=== PATIENT | female | born 1935 | race Two or more races ===

== ENCOUNTER 2017-04-25 20:21 | Inpatient (IN) | payer MEDICAID, MEDICARE ==
[~2017-04-25] VITALS: Ht 149.9 cm; Wt 63.0 kg
[~2017-04-25 20:21] MED LIST: ASPIR 8181 MG ORAL; ATENOLOL25 MG ORAL; GABAPENTIN100 MG ORAL; LEXAPRO10 MG ORAL; LOSARTAN POTASS25 MG ORAL; TRAMADOL HCL50 MG ORAL
[2017-04-25 20:30] VITALS: BP 145/68
[2017-04-25 21:00] LABS: ANION GAP 8 mmol/L (5-15); BASOPHILS % (AUTO) 0.9 % (0.0-2.0); CALCIUM 8.9 MG/DL (8.5-10.1); CARBON DIOXIDE 29 MMOL/L (21-32); CHLORIDE 100 MMOL/L (98-107); CREATININE 0.8 MG/DL (0.55-1.30); EOSINOPHILS % (AUTO) 0.1 % (0.0-3.0); LYMPHOCYTES % (AUTO) 18.1 % (20.0-45.0); MEAN CORPUSCULAR HEMOGLOBIN 25.9 PG (27.0-31.0); MEAN CORPUSCULAR HGB CONC 30.8 G/DL (32.0-36.0); MEAN CORPUSCULAR VOLUME 84 FL (80-99); MEAN PLATELET VOLUME 7.4 FL (6.5-10.1); MONOCYTES % (AUTO) 4.3 % (1.0-10.0); NEUTROPHILS % (AUTO) 76.7 % (45.0-75.0); PLATELET COUNT 171 K/UL (150-450); POTASSIUM 3.7 MMOL/L (3.5-5.1); RED CELL DISTRIBUTION WIDTH 14.1 % (11.6-14.8); SODIUM 137 MMOL/L (136-145); WHITE BLOOD COUNT 6.3 K/UL (4.8-10.8)
[2017-04-25 21:03] LABS: INR 1.1 (0.9-1.1); PROTHROMBIN TIME 11.6 SEC (9.30-11.50)
[2017-04-25 21:18] LABS: ALANINE AMINOTRANSFERASE 20 U/L (12-78); ALBUMIN/GLOBULIN RATIO 0.8 (1.0-2.7); ASPARTATE AMINO TRANSFERASE 18 U/L (15-37); CKMB 1.5 NG/ML (0.0-3.6); TOTAL PROTEIN 7.5 G/DL (6.4-8.2)
[2017-04-25 21:30] VITALS: BP 138/72
[2017-04-25 21:37] LABS: APPEARANCE,URINE CLEAR; KETONES,URINE 1+ (NEGATIVE); LEUKOCYTE ESTERASE ,URINE 1+ (NEGATIVE); NITRITE,URINE NEGATIVE (NEGATIVE); PH,URINE 8 (4.5-8.0); PROTEIN,URINE NEGATIVE (NEGATIVE); UROBILINOGEN,URINE NORMAL MG/DL (0.0-1.0)
[2017-04-25 21:52] LABS: BACTERIA,URINE FEW /HPF; SQUAMOUS EPITHELIAL CELL,UR FEW /LPF (NONE/OCC)
[2017-04-25 22:40] VITALS: BP 142/72
--- NOTE | 2017-04-25 23:11 | Emergency Room Report ---
History of Present Illness General Chief Complaint: Dyspnea/Respdistress Source: Patient, Family Member, PMD Present Illness HPI This patient is accompanied by her family. Over the past day she has declined rapidly. She is developed weakness and generalized fatigue. Her daughter states she seemed confused. Her reports that she has had some cough and shortness of breath. There is no trauma. There is no fever or chills. There is no nausea or vomiting. There is no chest pain. There is no abdominal pain. There are no other complaints. Allergies: Coded Allergies: No Known Allergies (Unverified , 04/25/17) Patient History Past Medical History: see triage record, HTN, other - Chronic foot pain Social History: Denies: smoking, alcohol use, drug use Reviewed Nursing Documentation: PMH: Agreed, PSxH: Agreed Nursing Documentation-PM Past Medical History: No History, Except For Hx Hypertension: Yes Review of Systems All Other Systems: negative except mentioned in HPI Physical Exam Vital Signs Date Time Temp Pulse Resp B/P (MAP) Pulse Ox O2 Delivery O2 Flow Rate FiO2 04/25/17 20:11 100.8 98 17 145/68 98 Simple Mask Sp02 EP Interpretation: reviewed, normal General Appearance: no apparent distress, alert, GCS 15, non-toxic Head: normocephalic, atraumatic Eyes: bilateral eye normal inspection, bilateral eye PERRL ENT: hearing grossly normal, normal pharynx, no angioedema, normal voice Neck: full range of motion, supple/symm/no masses Respiratory: chest non-tender, lungs clear, normal breath sounds, speaking full sentences Cardiovascular #1: regular rate, rhythm, no edema Gastrointestinal: normal bowel sounds, non tender, soft, non-distended, no guarding, no rebound Rectal: deferred Musculoskeletal: back normal, normal range of motion Neurologic: alert, responsive, sensory intact, speech normal, other - nonfocal. Not able to comply w/ full neuro exam. Psychiatric: mood/affect normal, no suicidal/homicidal ideation Skin: normal color, no rash, warm/dry, well hydrated Medical Decision Making Diagnostic Impression: Primary Impression: Pneumonia Additional Impressions: Anemia Fever ER Course This patient presents with a mild pneumonia. She is requiring to be does of nasal cannula. She is more somnolent than usual per her family. She was given broad-spectrum antibiotics and IV fluids. She is found to be in the neck. I am unsure of the acuity of this. The most recent hemoglobin and hematocrit is from 5 years ago. There is no history that would suggest a GI bleed. Regardless, the patient is oxygen requiring and febrile and found to be anemic. She is admitted for further evaluation and treatment. Laboratory Tests Test 04/25/17 20:20 04/25/17 21:15 White Blood Count 6.3 K/UL (4.8-10.8) Red Blood Count 4.00 M/UL (4.20-5.40) L Hemoglobin 10.4 G/DL (12.0-16.0) L Hematocrit 33.7 % (37.0-47.0) L Mean Corpuscular Volume 84 FL (80-99) Mean Corpuscular Hemoglobin 25.9 PG (27.0-31.0) L Mean Corpuscular Hemoglobin Concent 30.8 G/DL (32.0-36.0) L Red Cell Distribution Width 14.1 % (11.6-14.8) Platelet Count 171 K/UL (150-450) Mean Platelet Volume 7.4 FL (6.5-10.1) Neutrophils (%) (Auto) 76.7 % (45.0-75.0) H Lymphocytes (%) (Auto) 18.1 % (20.0-45.0) L Monocytes (%) (Auto) 4.3 % (1.0-10.0) Eosinophils (%) (Auto) 0.1 % (0.0-3.0) Basophils (%) (Auto) 0.9 % (0.0-2.0) Prothrombin Time 11.6 SEC (9.30-11.50) H Prothrombin Time INR 1.1 (0.9-1.1) PTT 29 SEC (23-33) Sodium Level 137 MMOL/L (136-145) Potassium Level 3.7 MMOL/L (3.5-5.1) Chloride Level 100 MMOL/L (98-107) Carbon Dioxide Level 29 MMOL/L (21-32) Anion Gap 8 mmol/L (5-15) Blood Urea Nitrogen 14 mg/dL (7-18) Creatinine 0.8 MG/DL (0.55-1.30) Estimate Glomerular Filtration Rate mL/min (>60) Glucose Level 116 MG/DL (74-106) H Calcium Level 8.9 MG/DL (8.5-10.1) Total Bilirubin 0.7 MG/DL (0.2-1.0) Aspartate Amino Transferase (AST) 18 U/L (15-37) Alanine Aminotransferase (ALT) 20 U/L (12-78) Alkaline Phosphatase 56 U/L (46-116) Total Creatine Kinase 156 U/L (26-308) Creatine Kinase MB 1.5 NG/ML (0.0-3.6) Creatine Kinase MB Relative Index 0.9 Troponin I 0.006 ng/mL (0.000-0.056) Pro-B-Type Natriuretic Peptide 1004 pg/mL (0-125) H Total Protein 7.5 G/DL (6.4-8.2) Albumin 3.4 G/DL (3.4-5.0) Globulin 4.1 g/dL Albumin/Globulin Ratio 0.8 (1.0-2.7) L Urine Color Pale yellow Urine Appearance Clear Urine pH 8 (4.5-8.0) Urine Specific [place] 1.010 (1.005-1.035) Urine Protein Negative (NEGATIVE) Urine Glucose (UA) Negative (NEGATIVE) Urine Ketones 1+ (NEGATIVE) H Urine Occult Blood 4+ (NEGATIVE) H Urine Nitrite Negative (NEGATIVE) Urine Bilirubin Negative (NEGATIVE) Urine Urobilinogen Normal MG/DL (0.0-1.0) Urine Leukocyte Esterase 1+ (NEGATIVE) H Urine RBC 5-10 /HPF (0 - 2) H Urine WBC 2-4 /HPF (0 - 2) Urine Squamous Epithelial Cells Few /LPF (NONE/OCC) Urine Bacteria Few /HPF (NONE) EKG Diagnostic Results Rate: normal Rhythm: NSR ST Segments: no acute changes Other Impression L.BBB Rhythm Strip Diag. Results EP Interpretation: yes Rate: 90's Rhythm: NSR, no PVC's, no ectopy Chest X-Ray Diagnostic Results Chest X-Ray Diagnostic Results : Chest X-Ray Ordered: Yes # of Views/Limited/Complete: 1 View Indication: Other EP Interpretation: Yes Interpretation: no effusion, no pneumothorax, other Impression: Other - Opacity LLL Electronically Signed by: Donovan CT/MRI/US Diagnostic Results CT/MRI/US Diagnostic Results : Imaging Test Ordered: CT head: Impression Formal reading pending. No obvious bleed on my read. See official report. Last Vital Signs Date Time Temp Pulse Resp B/P (MAP) Pulse Ox O2 Delivery O2 Flow Rate FiO2 04/25/17 20:11 100.8 98 17 145/68 98 Simple Mask Disposition: ADMITTED INPATIENT Condition: Serious Referrals: CARI POSADA (PCP) BRITNEY RIOS D.O. Apr 25, 2017 23:11
[2017-04-25] MEDS ORDERED: Acetaminophen 500mg (ES) tab ORAL ONE (23:30)
[2017-04-25] MEDS ORDERED: cefTRIAXone 1 GM in NS 55 ML IVPB ONE (23:30)
[2017-04-25 23:40] VITALS: BP 146/72
[2017-04-25] MEDS ORDERED: traMADol 50mg tab ORAL PRN (23:45)
[2017-04-26] VITALS (8 sets, daily range): BP systolic 97–155; BP diastolic 45–74
[2017-04-26] MEDS ORDERED: traMADol 50mg tab ORAL PRN (01:30)
[2017-04-26] MEDS: traMADol 50mg tab ORAL PRN ×3 (02:11→23:28)
[2017-04-26 07:04] LABS: BASOPHILS % (AUTO) 0.8 % (0.0-2.0); EOSINOPHILS % (AUTO) 0.1 % (0.0-3.0); LYMPHOCYTES % (AUTO) 15.1 % (20.0-45.0); MEAN CORPUSCULAR HEMOGLOBIN 26.3 PG (27.0-31.0); MEAN CORPUSCULAR HGB CONC 31.4 G/DL (32.0-36.0); MEAN CORPUSCULAR VOLUME 84 FL (80-99); MEAN PLATELET VOLUME 7.1 FL (6.5-10.1); MONOCYTES % (AUTO) 4.5 % (1.0-10.0); NEUTROPHILS % (AUTO) 79.6 % (45.0-75.0); PLATELET COUNT 154 K/UL (150-450); RED BLOOD COUNT 3.44 M/UL (4.20-5.40); RED CELL DISTRIBUTION WIDTH 14.1 % (11.6-14.8); WHITE BLOOD COUNT 3.9 K/UL (4.8-10.8)
[2017-04-26 07:16] LABS: ALANINE AMINOTRANSFERASE 17 U/L (12-78); ALBUMIN/GLOBULIN RATIO 0.9 (1.0-2.7); ANION GAP 6 mmol/L (5-15); ASPARTATE AMINO TRANSFERASE 19 U/L (15-37); CALCIUM 8.1 MG/DL (8.5-10.1); CARBON DIOXIDE 31 MMOL/L (21-32); CHLORIDE 103 MMOL/L (98-107); CREATININE 0.8 MG/DL (0.55-1.30); POTASSIUM 3.8 MMOL/L (3.5-5.1); SODIUM 140 MMOL/L (136-145)
[2017-04-26] MEDS: Aspirin EC 81mg tab ORAL SCH (08:49)
[2017-04-26] MEDS: Losartan 25mg tab ORAL SCH (08:50)
[2017-04-26] MEDS ORDERED: Atenolol 25mg tab ORAL SCH (09:00)
[2017-04-26] MEDS ORDERED: Heparin 5000 units/ml inj SUBQ SCH ×2 (09:00→21:00)
[2017-04-26] MEDS ORDERED: Atenolol 25mg tab ORAL ONE (09:00)
--- NOTE | 2017-04-26 09:17 | Diagnostic Imaging Report ---
Indications: Altered mental status Technique: Spiral acquisitions obtained through the brain. Angled axial and coronal 5 x 5 mm slices were reconstructed. Total dose length product 1435 mGycm. CTDI vol(s) 70.38 mGy. Dose reduction achieved using automated exposure control Comparison: None Findings: No acute intracranial bleed or edema, mass effect or midline shift demonstrated. There is diffuse enlargement of the lateral and third ventricles. The basilar cisterns and fissures are also dilated, but the sulci are much less so. There is periventricular deep white matter low-attenuation. The included sinuses are clear except for a small left ethmoid osteoma. The included orbits are unremarkable. The mastoids are clear. The calvarium is intact Impression: Negative for acute intracranial bleed or mass effect Lateral and third ventriculomegaly. Probably due to central volume loss. However, this is out of proportion to the degree of sulcal dilatation so the possibility of normal pressure hydrocephalus should be considered. 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
[2017-04-26] MEDS: Albuterol/Ipratropium 3ml neb HHN PRN ×3 (10:36→15:16)
--- NOTE | 2017-04-26 11:29 | Diagnostic Imaging Report ---
Indication: SOB Technique: One view of the chest Comparison: none Findings: Inspiration is suboptimal. Patient appears to be very kyphotic. Chronic appearing interstitial prominence and bronchial wall thickening is seen in the bilateral perihilar regions. There is minimal left infrahilar and right basilar atelectasis. Lungs and pleural spaces are otherwise clear. Impression: Somewhat limited exam. No definite acute process. Findings as noted
--- NOTE | 2017-04-26 13:00 | Consultation ---
History of Present Illness General Date patient seen: Apr 26, 2017 Chief Complaint: Dyspnea/Respdistress Reason for Consultation: dyspnea Present Illness HPI 82 year old female with pmhx of HTN, depression brought in by family c/o rapid decline. She is developed weakness and generalized fatigue. Her daughter states she seemed confused. Her reports that she has had some cough and shortness of breath. Pt was seemingly short of breath and coughing. Her CXR was negative. She was admitted to telemetry last night for further evaluation. She started having fevers since admission. She is very much hard of hearing, the at the bed site help with the interview. Allergies: Coded Allergies: No Known Allergies (Unverified , 04/25/17) Medication History Scheduled Aspirin* (Aspir 81*), 81 MG ORAL DAILY, (Reported) Atenolol* (Tenormin*), 25 MG ORAL DAILY, (Reported) Escitalopram Oxalate* (Lexapro*), 10 MG ORAL DAILY, (Reported) Gabapentin* (Gabapentin*), 100 MG ORAL THREE TIMES A DAY, (Reported) Losartan Potassium* (Losartan Potassium*), 25 MG ORAL DAILY, (Reported) Scheduled PRN Tramadol Hcl* (Ultram*), 50 MG ORAL Q6H PRN for For Pain, (Reported) Patient History Healthcare decision maker Resuscitation status Full Code Advanced Directive on File No Past Medical/Surgical History Past Medical/Surgical History: (1) Dementia (2) Depression Review of Systems Constitutional: Reports: fever, malaise ENT: Reports: no symptoms Respiratory: Reports: no symptoms Cardiovascular: Reports: no symptoms Physical Exam General Appearance: WD/WN, confused Lines, tubes and drains: peripheral HEENT: normocephalic, atraumatic Neck: non-tender, normal alignment Respiratory/Chest: rhonchi - left, rhonchi - right Cardiovascular/Chest: normal peripheral pulses, normal rate, regular rhythm Abdomen: normal bowel sounds, non tender Genitourinary/Rectal: normal genital exam Extremities: normal range of motion Skin Exam: normal pigmentation Last 24 Hour Vital Signs Date Time Temp Pulse Resp B/P (MAP) Pulse Ox O2 Delivery O2 Flow Rate FiO2 04/26/17 11:39 101.5 92 20 130/74 96 Room Air 04/26/17 10:48 86 18 98 Nasal Cannula 2.0 04/26/17 10:42 04/26/17 10:41 83 20 94 Nasal Cannula 2.0 04/26/17 10:41 83 20 Nasal Cannula 2.0 04/26/17 10:40 83 20 Nasal Cannula 2.0 04/26/17 08:50 86 155/70 04/26/17 08:50 155/70 04/26/17 08:10 96.5 86 20 155/70 95 04/26/17 04:45 128/59 96 Nasal Cannula 3.0 04/26/17 04:05 Nasal Cannula 3.0 04/26/17 04:03 72 04/26/17 04:00 97.7 76 18 97/45 97 Nasal Cannula 3.0 04/26/17 01:18 97.7 04/26/17 01:00 97.7 73 25 108/59 98 Nasal Cannula 3.0 04/26/17 00:45 100.5 82 18 136/74 98 Nasal Cannula 3.0 04/26/17 00:30 100.5 82 18 136/74 98 Nasal Cannula 3.0 04/25/17 23:40 101.9 88 18 146/72 99 Nasal Cannula 3.0 04/25/17 22:40 101.2 82 18 142/72 99 Nasal Cannula 3.0 04/25/17 21:30 100.9 89 18 138/72 99 Nasal Cannula 3.0 04/25/17 20:30 100.8 88 17 145/68 98 Nasal Cannula 3.0 04/25/17 20:30 98 17 Nasal Cannula 3.0 04/25/17 20:11 100.8 98 17 145/68 98 Simple Mask Intake and Output 04/26/17 04/27/17 19:00 07:00 Intake Total 100 ml Balance 100 ml Intake Oral 100 ml # Voids 3 Laboratory Tests Test 04/25/17 20:20 04/25/17 21:15 04/26/17 06:30 White Blood Count 6.3 K/UL (4.8-10.8) 3.9 K/UL (4.8-10.8) L Red Blood Count 4.00 M/UL (4.20-5.40) L 3.44 M/UL (4.20-5.40) L Hemoglobin 10.4 G/DL (12.0-16.0) L 9.1 G/DL (12.0-16.0) L Hematocrit 33.7 % (37.0-47.0) L 28.9 % (37.0-47.0) L Mean Corpuscular Volume 84 FL (80-99) 84 FL (80-99) Mean Corpuscular Hemoglobin 25.9 PG (27.0-31.0) L 26.3 PG (27.0-31.0) L Mean Corpuscular Hemoglobin Concent 30.8 G/DL (32.0-36.0) L 31.4 G/DL (32.0-36.0) L Red Cell Distribution Width 14.1 % (11.6-14.8) 14.1 % (11.6-14.8) Platelet Count 171 K/UL (150-450) 154 K/UL (150-450) Mean Platelet Volume 7.4 FL (6.5-10.1) 7.1 FL (6.5-10.1) Neutrophils (%) (Auto) 76.7 % (45.0-75.0) H 79.6 % (45.0-75.0) H Lymphocytes (%) (Auto) 18.1 % (20.0-45.0) L 15.1 % (20.0-45.0) L Monocytes (%) (Auto) 4.3 % (1.0-10.0) 4.5 % (1.0-10.0) Eosinophils (%) (Auto) 0.1 % (0.0-3.0) 0.1 % (0.0-3.0) Basophils (%) (Auto) 0.9 % (0.0-2.0) 0.8 % (0.0-2.0) Prothrombin Time 11.6 SEC (9.30-11.50) H Prothromb Time International Ratio 1.1 (0.9-1.1) Activated Partial Thromboplast Time 29 SEC (23-33) Sodium Level 137 MMOL/L (136-145) 140 MMOL/L (136-145) Potassium Level 3.7 MMOL/L (3.5-5.1) 3.8 MMOL/L (3.5-5.1) Chloride Level 100 MMOL/L (98-107) 103 MMOL/L (98-107) Carbon Dioxide Level 29 MMOL/L (21-32) 31 MMOL/L (21-32) Anion Gap 8 mmol/L (5-15) 6 mmol/L (5-15) Blood Urea Nitrogen 14 mg/dL (7-18) 12 mg/dL (7-18) Creatinine 0.8 MG/DL (0.55-1.30) 0.8 MG/DL (0.55-1.30) Estimat Glomerular Filtration Rate mL/min (>60) mL/min (>60) Glucose Level 116 MG/DL (74-106) H 103 MG/DL (74-106) Calcium Level 8.9 MG/DL (8.5-10.1) 8.1 MG/DL (8.5-10.1) L Total Bilirubin 0.7 MG/DL (0.2-1.0) 0.4 MG/DL (0.2-1.0) Aspartate Amino Transf (AST/SGOT) 18 U/L (15-37) 19 U/L (15-37) Alanine Aminotransferase (ALT/SGPT) 20 U/L (12-78) 17 U/L (12-78) Alkaline Phosphatase 56 U/L (46-116) 43 U/L (46-116) L Total Creatine Kinase 156 U/L (26-308) Creatine Kinase MB 1.5 NG/ML (0.0-3.6) Creatine Kinase MB Relative Index 0.9 Troponin I 0.006 ng/mL (0.000-0.056) 0.011 ng/mL (0.000-0.056) Pro-B-Type Natriuretic Peptide 1004 pg/mL (0-125) H Total Protein 7.5 G/DL (6.4-8.2) 6.0 G/DL (6.4-8.2) L Albumin 3.4 G/DL (3.4-5.0) 2.8 G/DL (3.4-5.0) L Globulin 4.1 g/dL 3.2 g/dL Albumin/Globulin Ratio 0.8 (1.0-2.7) L 0.9 (1.0-2.7) L Urine Color Pale yellow Urine Appearance Clear Urine pH 8 (4.5-8.0) Urine Specific [place] 1.010 (1.005-1.035) Urine Protein Negative (NEGATIVE) Urine Glucose (UA) Negative (NEGATIVE) Urine Ketones 1+ (NEGATIVE) H Urine Occult Blood 4+ (NEGATIVE) H Urine Nitrite Negative (NEGATIVE) Urine Bilirubin Negative (NEGATIVE) Urine Urobilinogen Normal MG/DL (0.0-1.0) Urine Leukocyte Esterase 1+ (NEGATIVE) H Urine RBC 5-10 /HPF (0 - 2) H Urine WBC 2-4 /HPF (0 - 2) Urine Squamous Epithelial Cells Few /LPF (NONE/OCC) Urine Bacteria Few /HPF (NONE) Height (Feet): 4 Height (Inches): 11.00 Weight (Pounds): 139 Medications Current Medications Medications (Trade) Dose Ordered Sig/Jovani Route PRN Reason Start Time Stop Time Status Last Admin Dose Admin Albuterol/ Ipratropium (Albuterol/ Ipratropium) 3 ml Q4H PRN HHN Shortness of Breath 04/26/17 10:15 05/01/17 10:14 04/26/17 10:37 Aspirin (Ecotrin) 81 mg DAILY ORAL 04/26/17 09:00 05/26/17 08:59 04/26/17 08:49 Atenolol (Tenormin) 25 mg DAILY ORAL 04/26/17 09:00 05/26/17 08:59 04/26/17 08:50 Escitalopram Oxalate (Lexapro) 10 mg DAILY ORAL 04/26/17 09:00 05/26/17 08:59 04/26/17 08:49 Gabapentin (Neurontin) 100 mg THREE TIMES A DAY ORAL 04/26/17 09:00 05/26/17 08:59 04/26/17 08:46 Heparin Sodium (Porcine) (Heparin 5000 units/ml) 5,000 units Q12HR SUBQ 04/26/17 21:00 05/26/17 20:59 Losartan Potassium (Cozaar) 25 mg DAILY ORAL 04/26/17 09:00 05/26/17 08:59 04/26/17 08:50 Tramadol HCl (Ultram) 50 mg Q6H PRN ORAL Severe Pain (Pain Scale 7-10) 04/26/17 02:00 05/03/17 01:59 04/26/17 08:49 Assessment/Plan Problem List: (1) Purulent bronchitis ICD Codes: J41.1 - Mucopurulent chronic bronchitis SNOMED: 09276330 (2) Fever ICD Codes: R50.9 - Fever, unspecified SNOMED: 006822544 (3) Anemia ICD Codes: D64.9 - Anemia, unspecified SNOMED: 964186281 (4) Dementia ICD Codes: F03.90 - Unspecified dementia without behavioral disturbance SNOMED: 90641043 (5) Depression ICD Codes: F32.9 - Major depressive disorder, single episode, unspecified SNOMED: 19475572 Assessment/Plan rosado cultures iv abx swallow evaluation pt/ot sputum for c/o dvt prophylaxis FELICITA STEWART Apr 26, 2017 13:00
--- NOTE | 2017-04-26 15:35 | Cardiology Report ---
APPROVED REPORT EXAM: Two-dimensional and M-mode echocardiogram with Doppler and color Doppler. INDICATION Shortness of breath M-Mode DIMENSIONS IVSd0.6 (0.7-1.1cm)Left Atrium (MM)5.5 (1.6-4.0cm) LVDd5.0 (3.5-5.6cm)Aortic Root3.1 (2.0-3.7cm) PWd1.5 (0.7-1.1cm)Aortic Cusp Exc.1.5 (1.5-2.0cm) LVDs3.3 (2.5-4.0cm) PWs2.3 cm Technically difficult study due to poor windows and patients position. Normal left ventricular chamber size, systolic function and wall motion to extent visualized. Left ventricular ejection fraction estimated to be 60-65%. Study quality precludes accurate assessment of regional wall motion. No left ventricular hypertrophy. No evidence of pericardial effusion. All other cardiac chamber sizes are within normal limits. Focal aortic valve sclerosis with adequate cusp excursion. Thickened mitral valve leaflets with normal excursion. Mitral annulus and aortic root calcification. Pulmonic valve not well visualized. Normal tricuspid valve structure. IVC at normal size and collapsing with respiration. A color flow and spectral Doppler study was performed and revealed: Mild aortic insufficiency. Mild mitral regurgitation. Mitral diastolic velocities suggest reduced left ventricular relaxation c/w mild LV borderline diastolic dysfunction (Grade I ). Mild tricuspid regurgitation. Tricuspid systolic velocities suggests peak right ventricular systolic pressure of 40 mmHg, consistent with mild pulmonary hypertension. No pulmonic regurgitation present.
--- NOTE | 2017-04-26 16:45 | Cardiology Report ---
APPROVED REPORT EKG Measurement Heart [id number] Normal sinus rhythm Left bundle branch block Abnormal ECG
[2017-04-26] MEDS: Piperacillin/Tazobactam 3.375 GM in NS 55 ML IVPB SCH ×2 (16:55→23:27)
--- NOTE | 2017-04-26 18:06 | Cardiology Progress Note ---
Assessment/Plan Assessment/Plan bronchospasm bronchitis toxic metabolic encephalopathy lbbb cronic knee issues and back issue htn hs anemia full note dicated [id number] Objective Last 24 Hour Vital Signs Date Time Temp Pulse Resp B/P (MAP) Pulse Ox O2 Delivery O2 Flow Rate FiO2 04/26/17 16:31 97.9 04/26/17 15:24 76 18 99 Nasal Cannula 2.0 04/26/17 15:19 100.0 75 18 129/66 95 04/26/17 15:16 78 20 95 Nasal Cannula 2.0 04/26/17 12:30 98.7 98 Nasal Cannula 3.0 04/26/17 12:00 90 04/26/17 11:39 101.5 92 20 130/74 96 Room Air 04/26/17 10:48 86 18 98 Nasal Cannula 2.0 04/26/17 10:42 28 04/26/17 10:41 83 20 94 Nasal Cannula 2.0 04/26/17 10:41 83 20 Nasal Cannula 2.0 04/26/17 10:40 83 20 Nasal Cannula 2.0 04/26/17 08:50 86 155/70 04/26/17 08:50 155/70 04/26/17 08:10 96.5 86 20 155/70 95 04/26/17 08:00 91 04/26/17 04:45 128/59 96 Nasal Cannula 3.0 04/26/17 04:05 Nasal Cannula 3.0 04/26/17 04:03 72 04/26/17 04:00 97.7 76 18 97/45 97 Nasal Cannula 3.0 04/26/17 01:18 97.7 04/26/17 01:00 97.7 73 25 108/59 98 Nasal Cannula 3.0 04/26/17 00:45 100.5 82 18 136/74 98 Nasal Cannula 3.0 04/26/17 00:30 100.5 82 18 136/74 98 Nasal Cannula 3.0 04/25/17 23:40 101.9 88 18 146/72 99 Nasal Cannula 3.0 04/25/17 22:40 101.2 82 18 142/72 99 Nasal Cannula 3.0 04/25/17 21:30 100.9 89 18 138/72 99 Nasal Cannula 3.0 04/25/17 20:30 100.8 88 17 145/68 98 Nasal Cannula 3.0 04/25/17 20:30 98 17 Nasal Cannula 3.0 04/25/17 20:11 100.8 98 17 145 98 Simple Mask Intake and Output 04/26/17 04/27/17 19:00 07:00 Intake Total 400 ml Balance 400 ml Intake Oral 400 ml # Voids 4 Laboratory Tests Test 04/25/17 20:20 04/25/17 21:15 04/26/17 06:30 04/26/17 14:30 White Blood Count 6.3 K/UL (4.8-10.8) 3.9 K/UL (4.8-10.8) L Red Blood Count 4.00 M/UL (4.20-5.40) L 3.44 M/UL (4.20-5.40) L Hemoglobin 10.4 G/DL (12.0-16.0) L 9.1 G/DL (12.0-16.0) L Hematocrit 33.7 % (37.0-47.0) L 28.9 % (37.0-47.0) L Mean Corpuscular Volume 84 FL (80-99) 84 FL (80-99) Mean Corpuscular Hemoglobin 25.9 PG (27.0-31.0) L 26.3 PG (27.0-31.0) L Mean Corpuscular Hemoglobin Concent 30.8 G/DL (32.0-36.0) L 31.4 G/DL (32.0-36.0) L Red Cell Distribution Width 14.1 % (11.6-14.8) 14.1 % (11.6-14.8) Platelet Count 171 K/UL (150-450) 154 K/UL (150-450) Mean Platelet Volume 7.4 FL (6.5-10.1) 7.1 FL (6.5-10.1) Neutrophils (%) (Auto) 76.7 % (45.0-75.0) H 79.6 % (45.0-75.0) H Lymphocytes (%) (Auto) 18.1 % (20.0-45.0) L 15.1 % (20.0-45.0) L Monocytes (%) (Auto) 4.3 % (1.0-10.0) 4.5 % (1.0-10.0) Eosinophils (%) (Auto) 0.1 % (0.0-3.0) 0.1 % (0.0-3.0) Basophils (%) (Auto) 0.9 % (0.0-2.0) 0.8 % (0.0-2.0) Prothrombin Time 11.6 SEC (9.30-11.50) H Prothromb Time International Ratio 1.1 (0.9-1.1) Activated Partial Thromboplast Time 29 SEC (23-33) Sodium Level 137 MMOL/L (136-145) 140 MMOL/L (136-145) Potassium Level 3.7 MMOL/L (3.5-5.1) 3.8 MMOL/L (3.5-5.1) Chloride Level 100 MMOL/L (98-107) 103 MMOL/L (98-107) Carbon Dioxide Level 29 MMOL/L (21-32) 31 MMOL/L (21-32) Anion Gap 8 mmol/L (5-15) 6 mmol/L (5-15) Blood Urea Nitrogen 14 mg/dL (7-18) 12 mg/dL (7-18) Creatinine 0.8 MG/DL (0.55-1.30) 0.8 MG/DL (0.55-1.30) Estimat Glomerular Filtration Rate mL/min (>60) mL/min (>60) Glucose Level 116 MG/DL (74-106) H 103 MG/DL (74-106) Calcium Level 8.9 MG/DL (8.5-10.1) 8.1 MG/DL (8.5-10.1) L Total Bilirubin 0.7 MG/DL (0.2-1.0) 0.4 MG/DL (0.2-1.0) Aspartate Amino Transf (AST/SGOT) 18 U/L (15-37) 19 U/L (15-37) Alanine Aminotransferase (ALT/SGPT) 20 U/L (12-78) 17 U/L (12-78) Alkaline Phosphatase 56 U/L (46-116) 43 U/L (46-116) L Total Creatine Kinase 156 U/L (26-308) Creatine Kinase MB 1.5 NG/ML (0.0-3.6) Creatine Kinase MB Relative Index 0.9 Troponin I 0.006 ng/mL (0.000-0.056) 0.011 ng/mL (0.000-0.056) 0.025 ng/mL (0.000-0.056) Pro-B-Type Natriuretic Peptide 1004 pg/mL (0-125) H Total Protein 7.5 G/DL (6.4-8.2) 6.0 G/DL (6.4-8.2) L Albumin 3.4 G/DL (3.4-5.0) 2.8 G/DL (3.4-5.0) L Globulin 4.1 g/dL 3.2 g/dL Albumin/Globulin Ratio 0.8 (1.0-2.7) L 0.9 (1.0-2.7) L Urine Color Pale yellow Urine Appearance Clear Urine pH 8 (4.5-8.0) Urine Specific [place] 1.010 (1.005-1.035) Urine Protein Negative (NEGATIVE) Urine Glucose (UA) Negative (NEGATIVE) Urine Ketones 1+ (NEGATIVE) H Urine Occult Blood 4+ (NEGATIVE) H Urine Nitrite Negative (NEGATIVE) Urine Bilirubin Negative (NEGATIVE) Urine Urobilinogen Normal MG/DL (0.0-1.0) Urine Leukocyte Esterase 1+ (NEGATIVE) H Urine RBC 5-10 /HPF (0 - 2) H Urine WBC 2-4 /HPF (0 - 2) Urine Squamous Epithelial Cells Few /LPF (NONE/OCC) Urine Bacteria Few /HPF (NONE) CELIO OQUENDO Apr 26, 2017 18:06
--- NOTE | 2017-04-26 19:19 | Consultation ---
Consult Note Consult Note NEUROLOGY CONSULTATION: Full note dictated #[id number] 82 y/o, RH, CF with PH of depression, possible dementia. For the last 10 days she has had a cough and fever. On 04/25/17 she was noted to be much more confused, disoriented, and generally weak. ON EXAM: Oriented to self only. Problems with memory. Unable to cooperate for further mental status tests. Mild generalized weakness. Globally diminished reflexes. Unable to stand and walk as she got dizzy when she was made to sit. IMPRESSION: Toxic encephalopathy for acute infectious illness. Unclear if she also has an underlying dementia. REC: W/U for treatable cognitive problems. Hydration and antibiotics. Observe Pia Workman M.D., M.S.P.PIA PAK Apr 26, 2017 19:19
[2017-04-26 19:43] LABS: HEMOGLOBIN A1C 6.6 % (4.3-6.0)
[2017-04-26 19:47] LABS: THYROID STIMULATING HORMONE 0.272 uiU/mL (0.358-3.740)
[2017-04-27] VITALS (7 sets, daily range): BP systolic 113–158; BP diastolic 59–88
--- NOTE | 2017-04-27 00:15 | Consultation ---
DATE OF CONSULTATION: 04/26/2017 NEUROLOGY CONSULTATION REQUESTING PHYSICIAN: Raul Medel M.D. HISTORY: Ms. Doreen Ponce is an 82-year-old, right-handed, lady, who does carry a prior history of depression and possible dementia. She was functioning relatively well until approximately 10 days ago when her tells me that she developed a cough and fever. The problem apparently got much worse yesterday and she was noted to be increasingly confused, disoriented, and generally weak. As a result of these problems, she was brought into the [facility] emergency room and has since been admitted. She continues to be significantly altered with regards to her mental state. She herself cannot give me much of history. She denies any weakness on one side or the other, numbness on one side or the other, problems with vision, or other neurological symptoms. PAST MEDICAL HISTORY: Significant for depression and possible dementia. FAMILY HISTORY: Nothing significant with regards to neurological illnesses. PERSONAL HISTORY: Home: She lives with her . Work: She is a housewife. Habits: There is no history of alcohol, tobacco, or illicit drug use. MEDICATIONS: Present medications include heparin for DVT prophylaxis, piperacillin and tazobactam intravenously, levofloxacin intravenously, albuterol inhaler, aspirin 81 mg daily, Lexapro 10 mg daily, gabapentin 100 mg three times a day, losartan and tramadol. PHYSICAL EXAMINATION: GENERAL: She is a well-developed, well-nourished, pleasant lady, lying in bed, in no acute distress. VITAL SIGNS: Pulse 76 per minute and regular, blood pressure 129/66 mm Hg, respirations 18 per minute, and temperature 100 degrees Fahrenheit. HEAD: Normocephalic and atraumatic. NECK: No neck rigidity was observed. EENT: Examination benign. NEUROLOGIC EXAMINATION: MENTAL STATUS EXAMINATION: She was awake and alert. She was oriented to self only. She had no idea where she was or what the date was. She was able to recall 3/3 words immediately, but could only remember 1/3 words in 1 minute and 3 minutes on the first trial. On the second trial, she was able to remember 2/3 words in 1 minute and 3 minutes. She was unable to tell me who the present President was and who prior presidents were. Her mathematical skills were impaired. Her visuospatial function was also impaired. SPEECH: She had no dysarthria. LANGUAGE: Could not be tested adequately. CRANIAL NERVE EXAMINATION: II: The visual jauregui were intact to confrontation testing. III, IV & : The external ocular movements were full and the pupils 3 mm in diameter, equal, round, regular, and reactive to light. V: She had normal facial sensations and the temporales, masseters, and pterygoids functioned normally. VII: She had normal facial expressions and no facial asymmetry. VIII: Her hearing seemed to be decreased bilaterally, but she had no nystagmus. IX: The palate moved symmetrically on phonation. X: She had no hoarseness of voice. XI: The sternocleidomastoids and trapezii functioned normally. XII: The tongue was in the midline without any fasciculations or atrophy. MOTOR SYSTEM: The tone was normal in all four extremities. Examination of muscle mass revealed no focal wasting. Examination of power revealed grade 5/5 power with some generalized give-way weakness and possibly a mild grade 4+/5 weakness in the iliopsoas muscles bilaterally. SENSORY EXAMINATION: She had intact sensations to pinprick and light touch. Other sensory modalities could not be tested. REFLEXES: Trace+ and bilaterally symmetrical at the biceps, triceps, brachioradialis, and knees, 0 at both ankles. The plantar responses were flexor bilaterally. COORDINATION: She performed well on [id number] testing. She was unable to perform [id number] testing. STANCE & GAIT: Could not be tested because as soon as she was made to sit she felt light headed. DIAGNOSTIC IMPRESSION: 1. Ms. Doreen Ponce is an 82-year-old, right-handed, lady, who does have a past history of depression and possible dementia who for the last 10 days has had a cough and fever. Yesterday, she was noted to be increasingly confused, disoriented, and generally weak and was thus brought to the hospital. She had been throwing up and had not eaten much that day. 2. On neurological examination, at this time, she does have a fever with a temperature of 100 degrees Fahrenheit orally., problems with orientation, recent and remote memory, visuospatial function, and higher cognitive function, generalized weakness with possibly some increased weakness in the iliopsoas muscles bilaterally, globally diminished deep tendon reflexes and inability to stand and walk because of possible lightheadedness versus dizziness when she was made to sit. 3. The CT scan of the brain without contrast performed at [facility] revealed significant atrophy and deep white matter changes, but no acute pathology. 4. Laboratory data obtained thus far have revealed that she is significantly anemic with a hemoglobin of 9.1, has a relatively benign chemistry panel except for an albumin of 2.8. She has a relatively normal urinalysis. 5. 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 It is unclear if she also has an underlying dementia. RECOMMENDATIONS: 1. Agree with management thus far. 2. We would work the patient up thoroughly for other treatable causes of cognitive decline. 3. Would continue aggressive antibiotic therapy and hydration. 4. The patient will be observed closely and depending on how she fares over the next day or so, further recommendations will be given. Thank you for entrusting me with the care of Ms.Ben Ponce. I shall follow her with you. Jose Workman M.D., M.S.P.H. DR: GABY JOB#: [id number] MTDD
[2017-04-27 07:14] LABS: MEAN CORPUSCULAR HEMOGLOBIN 26.4 PG (27.0-31.0); MEAN CORPUSCULAR HGB CONC 31.8 G/DL (32.0-36.0); MEAN CORPUSCULAR VOLUME 83 FL (80-99); MEAN PLATELET VOLUME 7.2 FL (6.5-10.1); PLATELET COUNT 142 K/UL (150-450); RED BLOOD COUNT 3.47 M/UL (4.20-5.40); RED CELL DISTRIBUTION WIDTH 13.9 % (11.6-14.8)
[2017-04-27 07:25] LABS: INR 1.2 (0.9-1.1); PROTHROMBIN TIME 12.5 SEC (9.30-11.50)
[2017-04-27 07:43] LABS: ANION GAP 5 mmol/L (5-15); CALCIUM 8.2 MG/DL (8.5-10.1); CARBON DIOXIDE 31 MMOL/L (21-32); CHLORIDE 103 MMOL/L (98-107); CREATININE 0.7 MG/DL (0.55-1.30); MAGNESIUM 1.8 MG/DL (1.8-2.4); POTASSIUM 3.9 MMOL/L (3.5-5.1); SODIUM 139 MMOL/L (136-145)
--- NOTE | 2017-04-27 08:00 | History and Physical Report ---
DATE OF ADMISSION: 04/25/2017 CARDIOLOGY EVALUATION REASON FOR EVALUATION: Management of respiratory issues, congestion. HISTORY OF PRESENT ILLNESS: This is an elderly female, 82 years old, who is a former patient of Dr. Rodriguez apparently for the past 10 or 12 days. According to her family members, has had increasing coughing and shortness of breath and wheezing last night. She was unable to get up and move around and was confused and not able to follow commands and was having some fevers and had some bloody sputum and the patient was transferred to [facility] Emergency Room. In the emergency room, she was diagnosed with possibility of either failure or pneumonia and was admitted to the hospital and received intravenous antibiotics in the emergency room. This morning I asked Dr. Garcia to see the patient. The patient also was started on a combination of beta-agonist inhalers and Atrovent and was given low doses of diuretics. She has had improvement this afternoon. She feels much better she says and her family members also agree. There has been no complaints of any chest pain. She has had some nausea and vomiting yesterday of significant degree according to her . The patient herself denies any diarrhea or constipation. PAST MEDICAL HISTORY: Positive for history of chronic knee pain. According to her , she has been battling for a number of years. [facility] records have been reviewed and indicate the patient has had problems with the knee back in 2007. The [facility] data indicate the patient was recently seen by for back pain and was started on gabapentin 100 mg as well as tramadol, which she has been on for a long time and she is supposed to have an MRI done. Her past medical history also is positive for breast reduction surgery in 2002 and obesity, depression, neuropathy, spinal stenosis, osteoarthritis, and degenerative joint disease. ALLERGIES: She is not allergic to any medications. SOCIAL HISTORY: . She lives with her . Does not drink. Does not smoke. REVIEW OF SYSTEMS: GASTROINTESTINAL: Nausea and vomiting as mentioned above. No bloody or black stools according to the patient. GENITOURINARY: Negative. PULMONARY: Positive cough, congestion, and wheezing. CONSTITUTIONAL: She has had fevers and chills. NEUROLOGIC: She has been confused as mentioned yesterday. PHYSICAL EXAMINATION: GENERAL: Shows an elderly female, in no respiratory distress. She appears somewhat tremulous. NECK: Supple. No jugular venous distention. LUNGS: Some upper airway noises and some few expiratory wheezes are noted. CARDIAC: Regular rate and rhythm. No heaves or thrills. ABDOMEN: Soft and nontender. Positive bowel sounds. EXTREMITIES: There is no edema. NEUROLOGICAL: She is arousable. She is very hard of hearing. LABORATORY AND DIAGNOSTIC DATA: Her white count is 3.9, hemoglobin 9.1, and platelet count of 154. Sodium is 140, potassium 3.8, chloride 100, bicarbonate 31, BUN 12, creatinine 0.8, and glucose of 103. Liver function tests are normal. Troponin 0.06, 0.011, and 0.025. Her proBNP is only 1000. Her albumin is 2.8. Coagulations, INR is 1.1 and PTT of 26. Urinalysis yesterday shows 1+ leukocyte esterase, 5 to 10 RBCs, and 2 to 4 WBCs. Chest x-ray performed in the emergency room shows a poor quality, somewhat limited, chronic appearing interstitial prominence and bronchial wall thickening is seen in bilateral peripheral hilar lesions. There is minimal left hilar and right basal atelectasis. Lungs , otherwise unremarkable. An echocardiogram has been performed, it shows ejection fraction 60% to 65%. Technically difficult study. No left ventricular hypertrophy, mild mitral and aortic regurgitation. Grade 1 diastolic dysfunction. Pulmonary artery systolic pressures in the 40s. Her telemetry shows what appears to be sinus rhythm. Her EKG shows sinus rhythm with leftward axis. There was EKG from last night and today. ASSESSMENT AND PLAN: 1. Bronchospasm bronchitis. 2. Diastolic dysfunction. 3. Mild pulmonary hypertension. 4. Dementia. 5. Chronic leg pain. 6. Anemia. 7. Possible urinary tract infection. 8. Toxic metabolic encephalopathy. This patient is admitted to the hospital, has received some intravenous antibiotics last night. The patient has received Zosyn for her bronchitis today at the direction of Dr. Garcia. Her medications were continued. Her atenolol will be discontinued in light of the fact that she has had some wheezing. I did administer low doses of Lasix earlier today. Her natriuretic peptide is not significantly elevated nor she is exhibiting signs of heart failure of significant degree at this time. Her blood pressure was elevated earlier today. She is feeling better. She should be continued on intravenous antibiotics. Neurology will see the patient. I suspect however that her main problem is toxic metabolic encephalopathy. Await the results of her urine culture. The urinalysis shows mild leukocytosis. Breathing treatments will be continued and she will be monitored closely. The cause of her left bundle-branch and the chronicity of the left bundle-branch block unfortunately is unknown at this time. I have searched [facility] data and not been able to find any electrocardiograms for comparison. We will ask Dr. oRdriguez's office to send one. Raul Medel M.D. DR: KALEY JOB#: [id number] CC: [place]
[2017-04-27 08:22] LABS: LYMPHOCYTES % (MANUAL) 22 % (20-45); NEUTROPHILS % (MANUAL) 72 % (45-75); TOTAL CELLS COUNTED 100
[2017-04-27 08:23] LABS: BAND NEUTROPHILS % (MANUAL) 0 % (0-8); BASOPHILS % (MANUAL) 0 % (0-2); EOSINOPHILS % (MANUAL) 0 % (0-3); HYPOCHROMASIA 1+; PLATELET ESTIMATE ADEQUATE; PLATELET MORPHOLOGY NORMAL
[2017-04-27 08:56] LABS: ERYTHROCYTE SEDIMENTATION RATE 32 MM/HR (0-42)
[2017-04-27] MEDS: Losartan 25mg tab ORAL SCH (09:13)
[2017-04-27] MEDS: Piperacillin/Tazobactam 3.375 GM in NS 55 ML IVPB SCH ×2 (09:13→16:04)
[2017-04-27] MEDS: Aspirin EC 81mg tab ORAL SCH (09:13)
[2017-04-27] MEDS: traMADol 50mg tab ORAL PRN (09:14)
[2017-04-27 09:30] LABS: FOLIC ACID 12.3 NG/ML (8.6-58.9); IRON 12 ug/dL (50-175); TOTAL IRON BINDING CAPACITY 270 ug/dL (250-450)
[2017-04-27 09:44] LABS: LACTATE DEHYDROGENASE 199 U/L (135-225)
[2017-04-27 10:13] LABS: PATH BLOOD SMEAR/OMC SENT TO PATHOLOGIST; RETICULOCYTE COUNT 0.4 % (0.0-2.0)
[2017-04-27] MEDS: Heparin 5000 units/ml inj SUBQ SCH ×2 (11:04→21:19)
--- NOTE | 2017-04-27 11:07 | Pulmonology Progress Note ---
Assessment/Plan Problems: (1) Fever (2) Purulent bronchitis (3) Anemia (4) Dementia (5) Depression Assessment/Plan temp coming down Urine cultures pending respiratory treatment ? depression Neuro evaluation reviewed hemodynamically stable med/surg psych evaluation. Subjective ROS Limited/Unobtainable: No Interval Events: sitting up in the chair Allergies: Coded Allergies: No Known Allergies (Unverified , 04/25/17) Objective Last 24 Hour Vital Signs Date Time Temp Pulse Resp B/P (MAP) Pulse Ox O2 Delivery O2 Flow Rate FiO2 04/27/17 09:13 131/63 04/27/17 08:14 97.9 57 18 131/63 96 04/27/17 04:07 97.9 62 20 129/67 98 Room Air 04/27/17 04:00 62 04/27/17 00:49 98.1 63 21 129/59 97 Nasal Cannula 2.0 04/27/17 00:00 62 04/26/17 22:51 100.0 04/26/17 20:04 98.2 85 20 125/66 95 Room Air 04/26/17 20:00 78 04/26/17 16:31 97.9 04/26/17 16:00 74 04/26/17 16:00 20 97 Nasal Cannula 3.0 04/26/17 15:24 76 18 99 Nasal Cannula 2.0 28 04/26/17 15:19 100.0 75 18 129/66 95 04/26/17 15:16 78 20 95 Nasal Cannula 2.0 28 04/26/17 12:30 98.7 98 Nasal Cannula 3.0 04/26/17 12:00 90 04/26/17 11:39 101.5 92 20 130/74 96 Room Air General Appearance: WD/WN HEENT: normocephalic, atraumatic Respiratory/Chest: chest wall non-tender, crackles/rales Breasts: no masses Cardiovascular: normal peripheral pulses, normal rate Abdomen: normal bowel sounds, soft, non tender, no organomegaly Genitourinary: normal external genitalia Skin: no rash Microbiology Date/Time Source Procedure Growth Status 04/26/17 16:30 Urine,Clean Catch Urine Culture - Preliminary NO GROWTH Resulted Laboratory Tests 04/26/17 14:30: Hemoglobin A1c 6.6H, Troponin I 0.025, Vitamin D 25-Hydroxy [Pending], 25- Hydroxy Vitamin D2 [Pending], 25-Hydroxy Vitamin D3 [Pending], Thyroid Stimulating Hormone (TSH) 0.272L, Rapid Plasma Reagin Non reactive 04/27/17 06:35: White Blood Count 3.0L, Red Blood Count 3.47L, Hemoglobin 9.2L, Hematocrit 28.8L , Mean Corpuscular Volume 83, Mean Corpuscular Hemoglobin 26.4L, Mean Corpuscular Hemoglobin Concent 31.8L, Red Cell Distribution Width 13.9, Platelet Count 142L, Mean Platelet Volume 7.2, Neutrophils (%) (Auto) , Lymphocytes (%) (Auto) , Monocytes (%) (Auto) , Eosinophils (%) (Auto) , Basophils (%) (Auto) , Differential Total Cells Counted 100, Neutrophils % ( Manual) 72, Lymphocytes % (Manual) 22, Monocytes % (Manual) 6, Eosinophils % ( Manual) 0, Basophils % (Manual) 0, Band Neutrophils 0, Platelet Estimate Adequate, Platelet Morphology Normal, Hypochromasia 1+, Erythrocyte Sedimentation Rate 32, Reticulocyte Count 0.4, Prothrombin Time 12.5H, Prothromb Time International Ratio 1.2H, Activated Partial Thromboplast Time 38H , Sodium Level 139, Potassium Level 3.9, Chloride Level 103, Carbon Dioxide Level 31, Anion Gap 5, Blood Urea Nitrogen 11, Creatinine 0.7, Estimat Glomerular Filtration Rate , Glucose Level 95, Calcium Level 8.2L, Magnesium Level 1.8, Iron Level 12L, Total Iron Binding Capacity 270, Percent Iron Saturation 4L, Unsaturated Iron Binding 258, Lactate Dehydrogenase 199, Pro-B- Type Natriuretic Peptide 832H, Vitamin B12 Level 487, Folate 12.3 Current Medications Medications (Trade) Dose Ordered Sig/Jovani Route PRN Reason Start Time Stop Time Status Last Admin Dose Admin Acetaminophen (Tylenol) 325 mg Q6H PRN ORAL Mild Pain/Temp > 100.5 04/26/17 21:45 05/26/17 21:44 04/26/17 21:52 Albuterol/ Ipratropium (Albuterol/ Ipratropium) 3 ml Q4H PRN HHN Shortness of Breath 04/26/17 10:15 05/01/17 10:14 04/26/17 15:16 Aspirin (Ecotrin) 81 mg DAILY ORAL 04/26/17 09:00 05/26/17 08:59 04/27/17 09:13 Escitalopram Oxalate (Lexapro) 10 mg DAILY ORAL 04/26/17 09:00 05/26/17 08:59 04/27/17 09:13 Gabapentin (Neurontin) 100 mg THREE TIMES A DAY ORAL 04/26/17 09:00 05/26/17 08:59 04/27/17 09:13 Heparin Sodium (Porcine) (Heparin 5000 units/ml) 5,000 units Q12HR SUBQ 04/27/17 11:00 05/27/17 10:59 Levofloxacin 100 ml @ 100 mls/hr Q48H IVPB 04/26/17 14:30 05/03/17 14:29 04/26/17 14:18 Losartan Potassium (Cozaar) 25 mg DAILY ORAL 04/26/17 09:00 05/26/17 08:59 04/27/17 09:13 Piperacillin Sod/ Tazobactam Sod 3.375 gm/Sodium Chloride 55 ml @ 13.75 mls/ hr Q8H IVPB 04/26/17 16:00 05/03/17 15:59 04/27/17 09:13 Tramadol HCl (Ultram) 50 mg Q6H PRN ORAL Severe Pain (Pain Scale 7-10) 04/26/17 02:00 05/03/17 01:59 04/27/17 09:14 FELICITA STEWART Apr 27, 2017 11:07
--- NOTE | 2017-04-27 12:24 | Neurology Progress Note ---
Interim History Interim History Interim History Ms. Anthony Ponce feels better. The mind is clearer. She is sitting up in a chair now. She is not lightheaded but feels nauseous. She denies any new neurologic symptoms. Review of Systems Neuro Review of Systems Benign. Objective Physical Exam Last Vital Signs Date Time Temp Pulse Resp B/P (MAP) Pulse Ox O2 Delivery O2 Flow Rate FiO2 04/27/17 11:18 97.5 74 18 158/88 95 04/27/17 04:07 Room Air 04/27/17 00:49 2.0 04/26/17 15:24 28 Laboratory Tests Test 04/26/17 14:30 04/27/17 06:35 Hemoglobin A1c 6.6 % (4.3-6.0) H Troponin I 0.025 ng/mL (0.000-0.056) Vitamin D 25-Hydroxy Pending 25-Hydroxy Vitamin D2 Pending 25-Hydroxy Vitamin D3 Pending Thyroid Stimulating Hormone (TSH) 0.272 uiU/mL (0.358-3.740) Rapid Plasma Reagin Non reactive (Non Reactive) White Blood Count 3.0 K/UL (4.8-10.8) L Red Blood Count 3.47 M/UL (4.20-5.40) L Hemoglobin 9.2 G/DL (12.0-16.0) L Hematocrit 28.8 % (37.0-47.0) L Mean Corpuscular Volume 83 FL (80-99) Mean Corpuscular Hemoglobin 26.4 PG (27.0-31.0) L Mean Corpuscular Hemoglobin Concent 31.8 G/DL (32.0-36.0) L Red Cell Distribution Width 13.9 % (11.6-14.8) Platelet Count 142 K/UL (150-450) L Mean Platelet Volume 7.2 FL (6.5-10.1) Neutrophils (%) (Auto) % (45.0-75.0) Lymphocytes (%) (Auto) % (20.0-45.0) Monocytes (%) (Auto) % (1.0-10.0) Eosinophils (%) (Auto) % (0.0-3.0) Basophils (%) (Auto) % (0.0-2.0) Differential Total Cells Counted 100 Neutrophils % (Manual) 72 % (45-75) Lymphocytes % (Manual) 22 % (20-45) Monocytes % (Manual) 6 % (1-10) Eosinophils % (Manual) 0 % (0-3) Basophils % (Manual) 0 % (0-2) Band Neutrophils 0 % (0-8) Platelet Estimate Adequate Platelet Morphology Normal Hypochromasia 1+ Erythrocyte Sedimentation Rate 32 MM/HR (0-42) Reticulocyte Count 0.4 % (0.0-2.0) Prothrombin Time 12.5 SEC (9.30-11.50) H Prothromb Time International Ratio 1.2 (0.9-1.1) H Activated Partial Thromboplast Time 38 SEC (23-33) H Sodium Level 139 MMOL/L (136-145) Potassium Level 3.9 MMOL/L (3.5-5.1) Chloride Level 103 MMOL/L (98-107) Carbon Dioxide Level 31 MMOL/L (21-32) Anion Gap 5 mmol/L (5-15) Blood Urea Nitrogen 11 mg/dL (7-18) Creatinine 0.7 MG/DL (0.55-1.30) Estimat Glomerular Filtration Rate mL/min (>60) Glucose Level 95 MG/DL (74-106) Calcium Level 8.2 MG/DL (8.5-10.1) L Magnesium Level 1.8 MG/DL (1.8-2.4) Iron Level 12 ug/dL (50-175) L Total Iron Binding Capacity 270 ug/dL (250-450) Percent Iron Saturation 4 % (15-50) L Unsaturated Iron Binding 258 ug/dL (112-346) Lactate Dehydrogenase 199 U/L (135-225) Pro-B-Type Natriuretic Peptide 832 pg/mL (0-125) H Vitamin B12 Level 487 PG/ML (193-986) Folate 12.3 NG/ML (8.6-58.9) Neurologic Exam Objective PHYSICAL EXAMINATION: GENERAL: She is a well-developed, well-nourished, pleasant lady, lying in bed, in no acute distress. HEAD: Normocephalic and atraumatic. NECK: No neck rigidity was observed. EENT: Examination benign. NEUROLOGIC EXAMINATION: MENTAL STATUS EXAMINATION: She was awake and alert. She was oriented to self and [facility] only. She had no idea where she was or what the date was. She was able to recall 3/3 words immediately, and could remember them in 1 minute and 3 minutes. She was was able to remember [employer] [place] through [place]. Her mathematical skills were impaired. Her visuospatial function was also impaired. SPEECH: She had no dysarthria. LANGUAGE: Could not be tested adequately. CRANIAL NERVE EXAMINATION: II: The visual jauregui were intact to confrontation testing. III, IV & : The external ocular movements were full and the pupils 3 mm in diameter, equal, round, regular, and reactive to light. V: She had normal facial sensations and the temporales, masseters, and pterygoids functioned normally. VII: She had normal facial expressions and no facial asymmetry. VIII: Her hearing seemed to be decreased bilaterally, but she had no nystagmus. IX: The palate moved symmetrically on phonation. X: She had no hoarseness of voice. XI: The sternocleidomastoids and trapezii functioned normally. XII: The tongue was in the midline without any fasciculations or atrophy. MOTOR SYSTEM: The tone was normal in all four extremities. Examination of muscle mass revealed no focal wasting. Examination of power revealed G 5/5 power except for G 4+/5 weakness in the iliopsoas muscles bilaterally. SENSORY EXAMINATION: She had intact sensations to pinprick and light touch. Other sensory modalities could not be tested. REFLEXES: Trace+ and bilaterally symmetrical at the biceps, triceps, brachioradialis, and knees, 0 at both ankles. The plantar responses were flexor bilaterally. COORDINATION: She performed well on [id number] testing. STANCE: She stood up with support. GAIT: She walked well with support on one side. TREMOR (7-8 Hz): G 1/4 jaw. Impression/Recommendations Diagnostic Impression 1. Ms. Doreen Ponce is an 82-year-old, right-handed, lady, who does have a past history of depression and possible dementia who for the last 10 days has had a cough and fever. On 04/25/17, she was noted to be increasingly confused, disoriented, and generally weak and was thus brought to the hospital. She had been throwing up and had not eaten much that day. 2. She feels much better today. She has been able to sit up and is cognitively better. She still feels nauseous. 3. On neurological examination, at this time, she she is afebrile. She continues to have problems with orientation, memory, visuospatial function, and higher cognitive function, however her cognitive function is significantly better compared to yesterday. She is generally stronger with mild weakness in the iliopsoas muscles bilaterally, and globally diminished deep tendon reflexes. She is now able to stand and walk with support on one side. versus dizziness when she was made to sit. 4. The CT scan of the brain without contrast performed at [facility] revealed significant atrophy and deep white matter changes, but no acute pathology. 5. Laboratory data available on my initial evaluation revealed that she was significantly anemic with a hemoglobin of 9.1, has a relatively benign chemistry panel except for an albumin of 2.8. She has a relatively normal urinalysis. 6. Further laboratory test have revealed an elevated BNP, low TSH, and a HB A1C elevated to 6.6%. 7. 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 It is unclear if she also has an underlying dementia. Recommendations 1. Continue present management. 2. Would continue aggressive antibiotic therapy and hydration. 3. Increase activity as tolerated. Pia Dunlap M.D., M.S.P.Charlie. PIA DUNLAP Apr 27, 2017 12:24
[2017-04-27] MEDS ORDERED: Tubing IV Secondary IV ONE (13:36)
[2017-04-27] MEDS: Albuterol/Ipratropium 3ml neb HHN PRN (14:44)
--- NOTE | 2017-04-27 20:21 | Cardiology Progress Note ---
Assessment/Plan Assessment/Plan bronchospasm bronchitis toxic metabolic encephalopathy lbbb cronic knee issues and back issue htn hs anemia overall better has sig bronchospasm still iv abx hhn oob has walked to day son feel pt is better she seem to recognize son byu his name contienu iv abx watych wbc Subjective Cardiovascular: Denies: chest pain, lightheadedness, palpitations Respiratory: Denies: shortness of breath Gastrointestinal/Abdominal: Denies: abdominal pain Genitourinary: Denies: burning Objective Last 24 Hour Vital Signs Date Time Temp Pulse Resp B/P (MAP) Pulse Ox O2 Delivery O2 Flow Rate FiO2 04/27/17 20:05 Nasal Cannula 2.0 28 04/27/17 20:04 78 20 Nasal Cannula 2.0 28 04/27/17 20:04 96 Nasal Cannula 2.0 28 04/27/17 16:30 96 Nasal Cannula 3.0 04/27/17 16:22 97.3 73 18 113/60 96 04/27/17 14:55 63 16 99 Nasal Cannula 2.0 04/27/17 14:46 36 04/27/17 14:46 61 18 93 Nasal Cannula 2.0 28 04/27/17 12:30 97.2 63 18 121/62 97 Nasal Cannula 3.0 04/27/17 11:18 97.5 74 18 158/88 95 04/27/17 09:13 131/63 04/27/17 08:30 96 Nasal Cannula 3.0 04/27/17 08:14 97.9 57 18 131/63 96 04/27/17 08:00 56 04/27/17 04:07 97.9 62 20 129/67 98 Room Air 04/27/17 04:00 62 04/27/17 00:49 98.1 63 21 129/59 97 Nasal Cannula 2.0 04/27/17 00:00 62 04/26/17 22:51 100.0 General Appearance: alert Neck: supple Cardiovascular: normal rate, regular rhythm Respiratory/Chest: expiratory wheezing Abdomen: normal bowel sounds, non tender, soft Extremities: no swelling Intake and Output 04/27/17 04/28/17 19:00 07:00 Intake Total 440 ml Balance 440 ml Intake Oral 440 ml # Voids 2 Laboratory Tests Test 04/27/17 06:35 White Blood Count 3.0 K/UL (4.8-10.8) L Red Blood Count 3.47 M/UL (4.20-5.40) L Hemoglobin 9.2 G/DL (12.0-16.0) L Hematocrit 28.8 % (37.0-47.0) L Mean Corpuscular Volume 83 FL (80-99) Mean Corpuscular Hemoglobin 26.4 PG (27.0-31.0) L Mean Corpuscular Hemoglobin Concent 31.8 G/DL (32.0-36.0) L Red Cell Distribution Width 13.9 % (11.6-14.8) Platelet Count 142 K/UL (150-450) L Mean Platelet Volume 7.2 FL (6.5-10.1) Neutrophils (%) (Auto) % (45.0-75.0) Lymphocytes (%) (Auto) % (20.0-45.0) Monocytes (%) (Auto) % (1.0-10.0) Eosinophils (%) (Auto) % (0.0-3.0) Basophils (%) (Auto) % (0.0-2.0) Differential Total Cells Counted 100 Neutrophils % (Manual) 72 % (45-75) Lymphocytes % (Manual) 22 % (20-45) Monocytes % (Manual) 6 % (1-10) Eosinophils % (Manual) 0 % (0-3) Basophils % (Manual) 0 % (0-2) Band Neutrophils 0 % (0-8) Platelet Estimate Adequate Platelet Morphology Normal Hypochromasia 1+ Erythrocyte Sedimentation Rate 32 MM/HR (0-42) Reticulocyte Count 0.4 % (0.0-2.0) Prothrombin Time 12.5 SEC (9.30-11.50) H Prothromb Time International Ratio 1.2 (0.9-1.1) H Activated Partial Thromboplast Time 38 SEC (23-33) H Sodium Level 139 MMOL/L (136-145) Potassium Level 3.9 MMOL/L (3.5-5.1) Chloride Level 103 MMOL/L (98-107) Carbon Dioxide Level 31 MMOL/L (21-32) Anion Gap 5 mmol/L (5-15) Blood Urea Nitrogen 11 mg/dL (7-18) Creatinine 0.7 MG/DL (0.55-1.30) Estimat Glomerular Filtration Rate mL/min (>60) Glucose Level 95 MG/DL (74-106) Calcium Level 8.2 MG/DL (8.5-10.1) L Magnesium Level 1.8 MG/DL (1.8-2.4) Iron Level 12 ug/dL (50-175) L Total Iron Binding Capacity 270 ug/dL (250-450) Percent Iron Saturation 4 % (15-50) L Unsaturated Iron Binding 258 ug/dL (112-346) Lactate Dehydrogenase 199 U/L (135-225) Pro-B-Type Natriuretic Peptide 832 pg/mL (0-125) H Vitamin B12 Level 487 PG/ML (193-986) Folate 12.3 NG/ML (8.6-58.9) Microbiology Date/Time Source Procedure Growth Status 04/26/17 16:30 Urine,Clean Catch Urine Culture - Preliminary NO GROWTH Resulted CELIO OQUENDO Apr 27, 2017 20:21
[2017-04-27] MEDS: Albuterol/Ipratropium 3ml neb HHN SCH (22:42)
[2017-04-28] VITALS (7 sets, daily range): BP systolic 124–147; BP diastolic 67–75
[2017-04-28] MEDS ORDERED: Zosyn 3.375gm inj ONE (00:35)
[2017-04-28] MEDS: Piperacillin/Tazobactam 3.375 GM in NS 55 ML IVPB SCH ×3 (00:47→18:36)
[2017-04-28 05:43] LABS: MEAN CORPUSCULAR HEMOGLOBIN 26.4 PG (27.0-31.0); MEAN CORPUSCULAR HGB CONC 31.5 G/DL (32.0-36.0); MEAN CORPUSCULAR VOLUME 84 FL (80-99); PLATELET COUNT 153 K/UL (150-450); RED BLOOD COUNT 3.42 M/UL (4.20-5.40)
[2017-04-28 06:22] LABS: ALANINE AMINOTRANSFERASE 23 U/L (12-78); ALBUMIN/GLOBULIN RATIO 0.9 (1.0-2.7); ANION GAP 6 mmol/L (5-15); ASPARTATE AMINO TRANSFERASE 28 U/L (15-37); CALCIUM 8.1 MG/DL (8.5-10.1); CARBON DIOXIDE 29 MMOL/L (21-32); CHLORIDE 104 MMOL/L (98-107); CREATININE 0.6 MG/DL (0.55-1.30); MAGNESIUM 1.7 MG/DL (1.8-2.4); PHOSPHORUS 3.4 MG/DL (2.5-4.9); SODIUM 139 MMOL/L (136-145); TOTAL PROTEIN 5.5 G/DL (6.4-8.2)
[2017-04-28 07:20] LABS: ERYTHROCYTE SEDIMENTATION RATE 42 MM/HR (0-42)
--- NOTE | 2017-04-28 07:36 | Pulmonology Progress Note ---
Assessment/Plan Assessment/Plan ASSESSMENT Acute purulent bronchitis with bronchospasm Anemia possible dementia possible toxic encephalopathy 2 to infectious process LBBB HTN Anemia iron deficiency and of chronic disease Depression PLAN OF CARE MS floor O2 HHN tid ATC and prn start IV steroids 40 mg bid, after 2 doses in am change to daily Empiric abx sputum cx if able CXR no definite acute process a/tussive prn BP management with ARB DVT prophylaxis ECHO with pEF 60-65% and RVSP of 40 continue ASA neuro follows CT head no acute IC pathology PT to mobilize the patient OOB with walker Psych follows Continue Lexapro anemia w/up c/w anemia of iron deficiency and anemia of chronic disease 1 dose of Venofer check stool OB, CEA low P, Neutro-phos x 24 hrs case discussed and evaluated by supervising physician Subjective Allergies: Coded Allergies: No Known Allergies (Unverified , 04/25/17) Subjective still wheezing and tight low P Objective Last 24 Hour Vital Signs Date Time Temp Pulse Resp B/P (MAP) Pulse Ox O2 Delivery O2 Flow Rate FiO2 04/28/17 04:00 97.9 73 21 132/71 94 04/28/17 04:00 Nasal Cannula 3.0 04/28/17 00:22 98.1 69 19 135/67 96 04/28/17 00:00 Nasal Cannula 3.0 04/27/17 22:53 74 16 99 Nasal Cannula 2.0 04/27/17 22:45 36 04/27/17 22:44 69 18 97 Nasal Cannula 2.0 04/27/17 20:05 Nasal Cannula 2.0 28 04/27/17 20:04 78 20 Nasal Cannula 2.0 28 04/27/17 20:04 96 Nasal Cannula 2.0 28 04/27/17 20:00 98.4 72 18 139/69 97 04/27/17 20:00 Nasal Cannula 3.0 04/27/17 16:30 96 Nasal Cannula 3.0 04/27/17 16:22 97.3 73 18 113/60 96 04/27/17 14:55 63 16 99 Nasal Cannula 2.0 28 04/27/17 14:46 36 04/27/17 14:46 61 18 93 Nasal Cannula 2.0 28 04/27/17 12:30 97.2 63 18 121/62 97 Nasal Cannula 3.0 04/27/17 11:18 97.5 74 18 158/88 95 04/27/17 09:13 131/63 04/27/17 08:30 96 Nasal Cannula 3.0 04/27/17 08:14 97.9 57 18 131/63 96 04/27/17 08:00 56 General Appearance: no acute distress, other - elderly female HEENT: normocephalic, atraumatic, anicteric, mucous membranes moist Respiratory/Chest: expiratory wheezing Cardiovascular: normal rate, regular rhythm Abdomen: normal bowel sounds, soft, non tender Genitourinary: normal external genitalia Extremities: no edema Neurologic/Psychiatric: abnormal gait, alert, responsive, normal mood/affect Musculoskeletal: atrophy - BLE Microbiology Date/Time Source Procedure Growth Status 04/26/17 16:05 Blood Blood Culture - Preliminary NO GROWTH AFTER 24 HOURS Resulted 04/26/17 15:52 Blood Blood Culture - Preliminary NO GROWTH AFTER 24 HOURS Resulted 04/26/17 16:30 Urine,Clean Catch Urine Culture - Preliminary NO GROWTH Resulted Laboratory Tests 04/28/17 04:50: White Blood Count 3.0L, Red Blood Count 3.42L, Hemoglobin 9.0L, Hematocrit 28.7L , Mean Corpuscular Volume 84, Mean Corpuscular Hemoglobin 26.4L, Mean Corpuscular Hemoglobin Concent 31.5L, Red Cell Distribution Width 14.0, Platelet Count 153, Mean Platelet Volume 8.0, Neutrophils (%) (Auto) , Lymphocytes (%) (Auto) , Monocytes (%) (Auto) , Eosinophils (%) (Auto) , Basophils (%) (Auto) , Neutrophils % (Manual) [Pending], Lymphocytes % (Manual) [Pending], Platelet Estimate [Pending], Platelet Morphology [Pending], Erythrocyte Sedimentation Rate 42, Sodium Level 139, Potassium Level 4.0, Chloride Level 104, Carbon Dioxide Level 29, Anion Gap 6, Blood Urea Nitrogen 10 , Creatinine 0.6, Estimat Glomerular Filtration Rate , Glucose Level 95, Calcium Level 8.1L, Phosphorus Level 3.4, Magnesium Level 1.7L, Ferritin 58, Total Bilirubin 0.2, Aspartate Amino Transf (AST/SGOT) 28, Alanine Aminotransferase (ALT/SGPT) 23, Alkaline Phosphatase 39L, Total Protein 5.5L, Albumin 2.6L, Globulin 2.9, Albumin/Globulin Ratio 0.9L Current Medications Medications (Trade) Dose Ordered Sig/Jovani Route PRN Reason Start Time Stop Time Status Last Admin Dose Admin Acetaminophen (Tylenol) 325 mg Q6H PRN ORAL Mild Pain/Temp > 100.5 04/26/17 21:45 05/26/17 21:44 04/28/17 06:28 Albuterol/ Ipratropium (Albuterol/ Ipratropium) 3 ml BIDRT HHN 04/27/17 22:00 05/02/17 21:59 04/27/17 22:42 Aspirin (Ecotrin) 81 mg DAILY ORAL 04/26/17 09:00 05/26/17 08:59 04/27/17 09:13 Escitalopram Oxalate (Lexapro) 10 mg DAILY ORAL 04/26/17 09:00 05/26/17 08:59 04/27/17 09:13 Gabapentin (Neurontin) 100 mg THREE TIMES A DAY ORAL 04/26/17 09:00 05/26/17 08:59 04/27/17 17:54 Heparin Sodium (Porcine) (Heparin 5000 units/ml) 5,000 units Q12HR SUBQ 04/27/17 11:00 05/27/17 10:59 04/27/17 21:19 Levofloxacin 100 ml @ 100 mls/hr Q48H IVPB 04/26/17 14:30 05/03/17 14:29 04/26/17 14:18 Losartan Potassium (Cozaar) 25 mg DAILY ORAL 04/26/17 09:00 05/26/17 08:59 04/27/17 09:13 Piperacillin Sod/ Tazobactam Sod 3.375 gm/Sodium Chloride 55 ml @ 13.75 mls/ hr Q8H IVPB 04/26/17 16:00 05/03/17 15:59 04/28/17 00:47 Tramadol HCl (Ultram) 50 mg Q6H PRN ORAL Severe Pain (Pain Scale 7-10) 04/26/17 02:00 05/03/17 01:59 04/27/17 09:14 Joyce Boone NP ([facility]) Apr 28, 2017 07:36
[2017-04-28] MEDS: Aspirin EC 81mg tab ORAL SCH (08:20)
[2017-04-28] MEDS: Losartan 25mg tab ORAL SCH (08:21)
[2017-04-28] MEDS: Heparin 5000 units/ml inj SUBQ SCH ×2 (08:22→20:34)
[2017-04-28] MEDS: traMADol 50mg tab ORAL PRN ×2 (08:28→21:27)
[2017-04-28 08:39] LABS: BAND NEUTROPHILS % (MANUAL) 0 % (0-8); BASOPHILS % (MANUAL) 0 % (0-2); EOSINOPHILS % (MANUAL) 0 % (0-3); HYPOCHROMASIA 1+; LYMPHOCYTES % (MANUAL) 48 % (20-45); NEUTROPHILS % (MANUAL) 47 % (45-75); PLATELET ESTIMATE ADEQUATE; PLATELET MORPHOLOGY NORMAL; TOTAL CELLS COUNTED 100
[2017-04-28] MEDS: Albuterol/Ipratropium 3ml neb HHN SCH ×2 (11:58→16:38)
[2017-04-28] MEDS ORDERED: Iron Sucrose 100 MG in NS 55 ML IV ONE ×3 (12:00→21:00)
--- NOTE | 2017-04-28 14:41 | Neurology Progress Note ---
Interim History Interim History Interim History Ms. Anthony Ponce feels better. The mind is clear. She is lying in bed now. She is not lightheaded. The nausea has resolved. She feels stronger. She says she walked a little earlier. She is still wheezing at times but denies any shortness of breath. She denies any new neurologic symptoms. Review of Systems Neuro Review of Systems Benign. Objective Physical Exam Last Vital Signs Date Time Temp Pulse Resp B/P (MAP) Pulse Ox O2 Delivery O2 Flow Rate FiO2 04/28/17 13:34 96 Nasal Cannula 2.0 04/28/17 12:12 72 18 28 04/28/17 12:00 98.1 132/68 Laboratory Tests Test 04/28/17 04:50 White Blood Count 3.0 K/UL (4.8-10.8) L Red Blood Count 3.42 M/UL (4.20-5.40) L Hemoglobin 9.0 G/DL (12.0-16.0) L Hematocrit 28.7 % (37.0-47.0) L Mean Corpuscular Volume 84 FL (80-99) Mean Corpuscular Hemoglobin 26.4 PG (27.0-31.0) L Mean Corpuscular Hemoglobin Concent 31.5 G/DL (32.0-36.0) L Red Cell Distribution Width 14.0 % (11.6-14.8) Platelet Count 153 K/UL (150-450) Mean Platelet Volume 8.0 FL (6.5-10.1) Neutrophils (%) (Auto) % (45.0-75.0) Lymphocytes (%) (Auto) % (20.0-45.0) Monocytes (%) (Auto) % (1.0-10.0) Eosinophils (%) (Auto) % (0.0-3.0) Basophils (%) (Auto) % (0.0-2.0) Differential Total Cells Counted 100 Neutrophils % (Manual) 47 % (45-75) Lymphocytes % (Manual) 48 % (20-45) H Monocytes % (Manual) 5 % (1-10) Eosinophils % (Manual) 0 % (0-3) Basophils % (Manual) 0 % (0-2) Band Neutrophils 0 % (0-8) Platelet Estimate Adequate Platelet Morphology Normal Hypochromasia 1+ Erythrocyte Sedimentation Rate 42 MM/HR (0-42) Sodium Level 139 MMOL/L (136-145) Potassium Level 4.0 MMOL/L (3.5-5.1) Chloride Level 104 MMOL/L (98-107) Carbon Dioxide Level 29 MMOL/L (21-32) Anion Gap 6 mmol/L (5-15) Blood Urea Nitrogen 10 mg/dL (7-18) Creatinine 0.6 MG/DL (0.55-1.30) Estimat Glomerular Filtration Rate mL/min (>60) Glucose Level 95 MG/DL (74-106) Calcium Level 8.1 MG/DL (8.5-10.1) L Phosphorus Level 3.4 MG/DL (2.5-4.9) Magnesium Level 1.7 MG/DL (1.8-2.4) L Ferritin 58 NG/ML (8-388) Total Bilirubin 0.2 MG/DL (0.2-1.0) Aspartate Amino Transf (AST/SGOT) 28 U/L (15-37) Alanine Aminotransferase (ALT/SGPT) 23 U/L (12-78) Alkaline Phosphatase 39 U/L (46-116) L Total Protein 5.5 G/DL (6.4-8.2) L Albumin 2.6 G/DL (3.4-5.0) L Globulin 2.9 g/dL Albumin/Globulin Ratio 0.9 (1.0-2.7) L Neurologic Exam Objective PHYSICAL EXAMINATION: GENERAL: She is a well-developed, well-nourished, pleasant lady, lying in bed, in no acute distress. HEAD: Normocephalic and atraumatic. NECK: No neck rigidity was observed. EENT: Examination benign. NEUROLOGIC EXAMINATION: MENTAL STATUS EXAMINATION: She was awake and alert. She was oriented to self and [facility] only. She had no idea where she was or what the date was. She was able to recall 3/3 words immediately, and could remember them in 1 minute and 3 minutes. She was was able to remember Presidents Trump through [place]. Her mathematical skills were impaired. Her visuospatial function was also impaired. SPEECH: She had no dysarthria. LANGUAGE: Could not be tested adequately. CRANIAL NERVE EXAMINATION: II: The visual jauregui were intact to confrontation testing. III, IV & : The external ocular movements were full and the pupils 3 mm in diameter, equal, round, regular, and reactive to light. V: She had normal facial sensations and the temporales, masseters, and pterygoids functioned normally. VII: She had normal facial expressions and no facial asymmetry. VIII: Her hearing seemed to be decreased bilaterally, but she had no nystagmus. IX: The palate moved symmetrically on phonation. X: She had no hoarseness of voice. XI: The sternocleidomastoids and trapezii functioned normally. XII: The tongue was in the midline without any fasciculations or atrophy. MOTOR SYSTEM: The tone was normal in all four extremities. Examination of muscle mass revealed no focal wasting. Examination of power revealed G 5/5 power except for G 4+/5 weakness in the iliopsoas muscles bilaterally. SENSORY EXAMINATION: She had intact sensations to pinprick and light touch. Other sensory modalities could not be tested. REFLEXES: Trace+ and bilaterally symmetrical at the biceps, triceps, brachioradialis, and knees, 0 at both ankles. The plantar responses were flexor bilaterally. COORDINATION: She performed well on [id number] testing. STANCE & GAIT: Were deferred. TREMOR (7-8 Hz): G 1/4 jaw. Impression/Recommendations Diagnostic Impression 1. Ms. Doreen Ponce is an 82-year-old, right-handed, lady, who does have a past history of depression and possible dementia who for the last 10 days has had a cough and fever. On 04/25/17, she was noted to be increasingly confused, disoriented, and generally weak and was thus brought to the hospital. She had been throwing up and had not eaten much that day. 2. She feels much better today. She has been able to sit up and walk, and is cognitively better. The nausea has resolved. 3. On neurological examination, at this time, she she is afebrile. She continues to have problems with orientation, memory, visuospatial function, and higher cognitive function, however her cognitive function is significantly better compared to when she came in. She is generally stronger with mild weakness in the iliopsoas muscles bilaterally, and globally diminished deep tendon reflexes. She is now able to stand and walk with support on one side. 4. The CT scan of the brain without contrast performed at [facility] revealed significant atrophy and deep white matter changes, but no acute pathology. 5. Laboratory data available on my initial evaluation revealed that she was significantly anemic with a hemoglobin of 9.1, has a relatively benign chemistry panel except for an albumin of 2.8. She has a relatively normal urinalysis. 6. Further laboratory test have revealed an elevated BNP, low TSH, and a HB A1C elevated to 6.6%. 7. 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 It is unclear if she also has an underlying dementia. Recommendations 1. Continue present management. 2. Would continue aggressive antibiotic therapy and hydration. 3. Increase activity as tolerated. 4. Observe closely. Pia Workman M.D., M.S.P.PIA PAK Apr 28, 2017 14:41
[2017-04-28] MEDS ORDERED: Solu-MEDROL 125mg Inj IV SCH (18:00)
[2017-04-28] MEDS: Phospha 250 Neutral tab ORAL SCH (18:36)
[2017-04-29 00:09] VITALS: BP 130/74
[2017-04-29] MEDS: Piperacillin/Tazobactam 3.375 GM in NS 55 ML IVPB SCH ×2 (01:01→08:13)
[2017-04-29] MEDS: Albuterol/Ipratropium 3ml neb HHN PRN (01:17)
[2017-04-29 04:00] VITALS: BP 132/80
[2017-04-29] MEDS: Albuterol/Ipratropium 3ml neb HHN SCH ×3 (07:46→20:20)
[2017-04-29 07:57] LABS: MEAN CORPUSCULAR HEMOGLOBIN 25.6 PG (27.0-31.0); MEAN CORPUSCULAR HGB CONC 30.7 G/DL (32.0-36.0); MEAN CORPUSCULAR VOLUME 83 FL (80-99); MEAN PLATELET VOLUME 6.4 FL (6.5-10.1); PLATELET COUNT 163 K/UL (150-450); RED BLOOD COUNT 3.69 M/UL (4.20-5.40); WHITE BLOOD COUNT 2.4 K/UL (4.8-10.8)
[2017-04-29 08:23] LABS: ANION GAP 7 mmol/L (5-15); CALCIUM 8.6 MG/DL (8.5-10.1); CARBON DIOXIDE 30 MMOL/L (21-32); CHLORIDE 102 MMOL/L (98-107); CREATININE 0.6 MG/DL (0.55-1.30); POTASSIUM 4.1 MMOL/L (3.5-5.1); SODIUM 138 MMOL/L (136-145)
[2017-04-29 08:36] LABS: BAND NEUTROPHILS % (MANUAL) 0 % (0-8); BASOPHILS % (MANUAL) 0 % (0-2); EOSINOPHILS % (MANUAL) 0 % (0-3); HYPOCHROMASIA 1+; LYMPHOCYTES % (MANUAL) 20 % (20-45); NEUTROPHILS % (MANUAL) 78 % (45-75); PLATELET ESTIMATE ADEQUATE; PLATELET MORPHOLOGY NORMAL; TOTAL CELLS COUNTED 100
[2017-04-29 08:37] VITALS: BP 143/72
[2017-04-29] MEDS: Aspirin EC 81mg tab ORAL SCH (08:50)
[2017-04-29] MEDS: Phospha 250 Neutral tab ORAL SCH ×3 (08:50→17:27)
[2017-04-29] MEDS: Losartan 25mg tab ORAL SCH (08:51)
[2017-04-29] MEDS: Heparin 5000 units/ml inj SUBQ SCH ×2 (08:53→20:47)
[2017-04-29 08:56] LABS: OTHERS PATHOLOGIST COMMENT
[2017-04-29] MEDS ORDERED: Solu-MEDROL 40mg Inj IVP SCH (09:00)
--- NOTE | 2017-04-29 09:02 | Cardiology Progress Note ---
Assessment/Plan Assessment/Plan leukopenia bronchospasm bronchitis toxic metabolic encephalopathy lbbb chronic knee issues and back issue htn hs anemia overall better has sig bronchospasm still was started on steroid yesyt wbxc now iv abx will stop the levaquin and zosyn until pt is seen by clin application specialist as possible side effect of meds hhn is making her tremulous oob has walked yes day son feel pt is better i triexd to call family but phone no may be error williams have staff call me when they come in d/w pulm and clin application specialist Subjective Cardiovascular: Denies: chest pain Respiratory: Reports: cough, shortness of breath Gastrointestinal/Abdominal: Denies: abdomen distended Genitourinary: Denies: burning Objective Last 24 Hour Vital Signs Date Time Temp Pulse Resp B/P (MAP) Pulse Ox O2 Delivery O2 Flow Rate FiO2 04/29/17 08:37 98.4 74 20 143/72 96 Room Air 04/29/17 08:20 76 18 98 Nasal Cannula 2.0 28 04/29/17 07:55 28 04/29/17 07:48 96 Nasal Cannula 2.0 28 04/29/17 07:48 74 18 96 Nasal Cannula 2.0 28 04/29/17 07:48 Nasal Cannula 2.0 28 04/29/17 07:47 74 20 Nasal Cannula 2.0 28 04/29/17 04:00 98.1 88 19 132/80 95 04/29/17 04:00 Nasal Cannula 2.0 04/29/17 01:31 78 18 95 Nasal Cannula 3.0 32 04/29/17 01:30 32 04/29/17 01:18 71 18 92 Nasal Cannula 2.0 28 04/29/17 00:09 Nasal Cannula 2.0 04/29/17 00:09 98.1 91 20 130/74 94 04/28/17 20:16 Nasal Cannula 2.0 04/28/17 20:16 98.2 95 18 127/72 94 04/28/17 19:38 Nasal Cannula 2.0 28 04/28/17 19:37 95 Nasal Cannula 2.0 28 04/28/17 16:49 74 18 100 Nasal Cannula 2.0 28 04/28/17 16:48 97.7 76 17 124/68 96 Room Air 04/28/17 16:48 28 04/28/17 16:40 72 18 99 Nasal Cannula 2.0 28 04/28/17 16:39 99 Nasal Cannula 2.0 28 04/28/17 16:39 Nasal Cannula 2.0 28 04/28/17 16:39 72 20 Nasal Cannula 2.0 28 04/28/17 13:34 96 Nasal Cannula 2.0 04/28/17 12:12 72 18 100 Nasal Cannula 2.0 28 04/28/17 12:10 28 04/28/17 12:02 68 18 99 Nasal Cannula 2.0 04/28/17 12:01 Nasal Cannula 2.0 28 04/28/17 12:00 98.1 64 20 132/68 98 Nasal Cannula 2.0 04/28/17 12:00 99 Nasal Cannula 2.0 04/28/17 11:58 68 20 Nasal Cannula 2.0 04/28/17 09:59 97.9 General Appearance: no apparent distress, alert Neck: supple Cardiovascular: normal rate, regular rhythm Respiratory/Chest: inspiratory wheezing Abdomen: normal bowel sounds, non tender, soft Extremities: no swelling Laboratory Tests Test 04/29/17 06:30 White Blood Count 2.4 K/UL (4.8-10.8) L Red Blood Count 3.69 M/UL (4.20-5.40) L Hemoglobin 9.4 G/DL (12.0-16.0) L Hematocrit 30.8 % (37.0-47.0) L Mean Corpuscular Volume 83 FL (80-99) Mean Corpuscular Hemoglobin 25.6 PG (27.0-31.0) L Mean Corpuscular Hemoglobin Concent 30.7 G/DL (32.0-36.0) L Red Cell Distribution Width 14.0 % (11.6-14.8) Platelet Count 163 K/UL (150-450) Mean Platelet Volume 6.4 FL (6.5-10.1) L Neutrophils (%) (Auto) % (45.0-75.0) Lymphocytes (%) (Auto) % (20.0-45.0) Monocytes (%) (Auto) % (1.0-10.0) Eosinophils (%) (Auto) % (0.0-3.0) Basophils (%) (Auto) % (0.0-2.0) Differential Total Cells Counted 100 Neutrophils % (Manual) 78 % (45-75) H Lymphocytes % (Manual) 20 % (20-45) Monocytes % (Manual) 2 % (1-10) Eosinophils % (Manual) 0 % (0-3) Basophils % (Manual) 0 % (0-2) Band Neutrophils 0 % (0-8) Platelet Estimate Adequate Platelet Morphology Normal Hypochromasia 1+ Sodium Level 138 MMOL/L (136-145) Potassium Level 4.1 MMOL/L (3.5-5.1) Chloride Level 102 MMOL/L (98-107) Carbon Dioxide Level 30 MMOL/L (21-32) Anion Gap 7 mmol/L (5-15) Blood Urea Nitrogen 11 mg/dL (7-18) Creatinine 0.6 MG/DL (0.55-1.30) Estimat Glomerular Filtration Rate mL/min (>60) Glucose Level 161 MG/DL (74-106) H Calcium Level 8.6 MG/DL (8.5-10.1) Microbiology Date/Time Source Procedure Growth Status 04/26/17 16:05 Blood Blood Culture - Preliminary NO GROWTH AFTER 48 HOURS Resulted 04/26/17 15:52 Blood Blood Culture - Preliminary NO GROWTH AFTER 48 HOURS Resulted 04/26/17 16:30 Urine,Clean Catch Urine Culture - Final Mixed Gram Positive Organism Complete CELIO OQUENDO Apr 29, 2017 09:02
[2017-04-29] MEDS: traMADol 50mg tab ORAL PRN ×2 (09:46→20:46)
--- NOTE | 2017-04-29 10:31 | Pulmonology Progress Note ---
Assessment/Plan Assessment/Plan ASSESSMENT Acute purulent bronchitis with bronchospasm Anemia possible dementia possible toxic encephalopathy 2 to infectious process Leukopenia LBBB HTN Anemia iron deficiency and of chronic disease Depression PLAN OF CARE MS floor O2 HHN tid ATC and prn , dc IV steroids after this am dose and start oral Prednisol in am with fast tapering down Empiric abx - dc as per PMD due to possible SE of leukopenia, heme eval pending sputum cx if able CXR no definite acute process a/tussive prn BP management with ARB DVT prophylaxis ECHO with pEF 60-65% and RVSP of 40 continue ASA neuro follows CT head no acute IC pathology PT to mobilize the patient OOB with walker Psych follows Continue Lexapro anemia w/up c/w anemia of iron deficiency and anemia of chronic disease s/p 1 dose of Venofer check stool OB, CEA P replaced, check P in am case discussed and evaluated by supervising physician Subjective Allergies: Coded Allergies: No Known Allergies (Unverified , 04/25/17) Subjective respiratory status improving WBC with trend down Objective Last 24 Hour Vital Signs Date Time Temp Pulse Resp B/P (MAP) Pulse Ox O2 Delivery O2 Flow Rate FiO2 04/29/17 08:51 143/79 04/29/17 08:37 98.4 74 20 143/72 96 Room Air 04/29/17 08:20 76 18 98 Nasal Cannula 2.0 28 04/29/17 07:55 28 04/29/17 07:48 96 Nasal Cannula 2.0 28 04/29/17 07:48 74 18 96 Nasal Cannula 2.0 28 04/29/17 07:48 Nasal Cannula 2.0 28 04/29/17 07:47 74 20 Nasal Cannula 2.0 28 04/29/17 04:00 98.1 88 19 132/80 95 04/29/17 04:00 Nasal Cannula 2.0 04/29/17 01:31 78 18 95 Nasal Cannula 3.0 32 04/29/17 01:30 32 04/29/17 01:18 71 18 92 Nasal Cannula 2.0 28 04/29/17 00:09 Nasal Cannula 2.0 04/29/17 00:09 98.1 91 20 130/74 94 04/28/17 20:16 Nasal Cannula 2.0 04/28/17 20:16 98.2 95 18 127/72 94 04/28/17 19:38 Nasal Cannula 2.0 28 04/28/17 19:37 95 Nasal Cannula 2.0 28 04/28/17 16:49 74 18 100 Nasal Cannula 2.0 28 04/28/17 16:48 97.7 76 17 124/68 96 Room Air 04/28/17 16:48 28 04/28/17 16:40 72 18 99 Nasal Cannula 2.0 28 04/28/17 16:39 99 Nasal Cannula 2.0 28 04/28/17 16:39 Nasal Cannula 2.0 28 04/28/17 16:39 72 20 Nasal Cannula 2.0 28 04/28/17 13:34 96 Nasal Cannula 2.0 04/28/17 12:12 72 18 100 Nasal Cannula 2.0 28 04/28/17 12:10 28 04/28/17 12:02 68 18 99 Nasal Cannula 2.0 28 04/28/17 12:01 Nasal Cannula 2.0 28 04/28/17 12:00 98.1 64 20 132/68 98 Nasal Cannula 2.0 04/28/17 12:00 99 Nasal Cannula 2.0 28 04/28/17 11:58 68 20 Nasal Cannula 2.0 28 Objective General Appearance: no acute distress, other - elderly female HEENT: normocephalic, atraumatic, anicteric, mucous membranes moist Respiratory/Chest: few scattered expiratory wheezes Cardiovascular: normal rate, regular rhythm Abdomen: normal bowel sounds, soft, non tender Genitourinary: normal external genitalia Extremities: no edema Neurologic/Psychiatric: abnormal gait, alert, responsive, normal mood/affect Musculoskeletal: atrophy - BLE Microbiology Date/Time Source Procedure Growth Status 04/26/17 16:05 Blood Blood Culture - Preliminary NO GROWTH AFTER 48 HOURS Resulted 04/26/17 15:52 Blood Blood Culture - Preliminary NO GROWTH AFTER 48 HOURS Resulted 04/26/17 16:30 Urine,Clean Catch Urine Culture - Final Mixed Gram Positive Organism Complete Laboratory Tests 04/29/17 06:30: White Blood Count 2.4L, Red Blood Count 3.69L, Hemoglobin 9.4L, Hematocrit 30.8L , Mean Corpuscular Volume 83, Mean Corpuscular Hemoglobin 25.6L, Mean Corpuscular Hemoglobin Concent 30.7L, Red Cell Distribution Width 14.0, Platelet Count 163, Mean Platelet Volume 6.4L, Neutrophils (%) (Auto) , Lymphocytes (%) (Auto) , Monocytes (%) (Auto) , Eosinophils (%) (Auto) , Basophils (%) (Auto) , Differential Total Cells Counted 100, Neutrophils % ( Manual) 78H, Lymphocytes % (Manual) 20, Monocytes % (Manual) 2, Eosinophils % ( Manual) 0, Basophils % (Manual) 0, Band Neutrophils 0, Platelet Estimate Adequate, Platelet Morphology Normal, Hypochromasia 1+, Sodium Level 138, Potassium Level 4.1, Chloride Level 102, Carbon Dioxide Level 30, Anion Gap 7, Blood Urea Nitrogen 11, Creatinine 0.6, Estimat Glomerular Filtration Rate , Glucose Level 161H, Calcium Level 8.6 Current Medications Medications (Trade) Dose Ordered Sig/Jovani Route PRN Reason Start Time Stop Time Status Last Admin Dose Admin Acetaminophen (Tylenol) 325 mg Q6H PRN ORAL Mild Pain/Temp > 100.5 04/26/17 21:45 05/26/17 21:44 04/29/17 01:43 Albuterol/ Ipratropium (Albuterol/ Ipratropium) 3 ml Q4H PRN HHN SHORTNESS OF BREATH 04/28/17 15:00 05/03/17 14:59 04/29/17 01:17 Albuterol/ Ipratropium (Albuterol/ Ipratropium) 3 ml TIDRT HHN 04/28/17 19:00 05/02/17 21:59 04/29/17 07:46 Aspirin (Ecotrin) 81 mg DAILY ORAL 04/26/17 09:00 05/26/17 08:59 04/29/17 08:50 Escitalopram Oxalate (Lexapro) 10 mg DAILY ORAL 04/26/17 09:00 05/26/17 08:59 04/29/17 08:50 Gabapentin (Neurontin) 100 mg THREE TIMES A DAY ORAL 04/26/17 09:00 05/26/17 08:59 04/29/17 09:05 Heparin Sodium (Porcine) (Heparin 5000 units/ml) 5,000 units Q12HR SUBQ 04/27/17 11:00 05/27/17 10:59 04/29/17 08:53 Losartan Potassium (Cozaar) 25 mg DAILY ORAL 04/26/17 09:00 05/26/17 08:59 04/29/17 08:51 Methylprednisolone Sodium Succinate (Solu-MEDROL) 40 mg DAILY IVP 04/29/17 09:00 05/29/17 08:59 04/29/17 08:51 Phosphorus (Phospha 250 Neutral) 250 mg THREE TIMES A DAY ORAL 04/28/17 18:00 05/28/17 17:59 04/29/17 08:50 Tramadol HCl (Ultram) 50 mg Q6H PRN ORAL Severe Pain (Pain Scale 7-10) 04/26/17 02:00 05/03/17 01:59 04/29/17 09:46 Paolo ([facility])Joyce NP Apr 29, 2017 10:31
[2017-04-29 12:28] VITALS: BP 155/90
--- NOTE | 2017-04-29 12:55 | Neurology Progress Note ---
Interim History Interim History Interim History Ms. Anthony Ponce feels unwell. She has a headache today. She does not want to get out of bed. The mind is clear. She is not lightheaded. She denies any nausea. She feels stronger. She has not walked today. She is still wheezing but denies any shortness of breath. She denies any new neurologic symptoms. Review of Systems Neuro Review of Systems Benign. Objective Physical Exam Last Vital Signs Date Time Temp Pulse Resp B/P (MAP) Pulse Ox O2 Delivery O2 Flow Rate FiO2 04/29/17 12:28 98.3 98 18 155/90 98 Room Air 04/29/17 08:20 2.0 28 Laboratory Tests Test 04/29/17 06:30 White Blood Count 2.4 K/UL (4.8-10.8) L Red Blood Count 3.69 M/UL (4.20-5.40) L Hemoglobin 9.4 G/DL (12.0-16.0) L Hematocrit 30.8 % (37.0-47.0) L Mean Corpuscular Volume 83 FL (80-99) Mean Corpuscular Hemoglobin 25.6 PG (27.0-31.0) L Mean Corpuscular Hemoglobin Concent 30.7 G/DL (32.0-36.0) L Red Cell Distribution Width 14.0 % (11.6-14.8) Platelet Count 163 K/UL (150-450) Mean Platelet Volume 6.4 FL (6.5-10.1) L Neutrophils (%) (Auto) % (45.0-75.0) Lymphocytes (%) (Auto) % (20.0-45.0) Monocytes (%) (Auto) % (1.0-10.0) Eosinophils (%) (Auto) % (0.0-3.0) Basophils (%) (Auto) % (0.0-2.0) Differential Total Cells Counted 100 Neutrophils % (Manual) 78 % (45-75) H Lymphocytes % (Manual) 20 % (20-45) Monocytes % (Manual) 2 % (1-10) Eosinophils % (Manual) 0 % (0-3) Basophils % (Manual) 0 % (0-2) Band Neutrophils 0 % (0-8) Platelet Estimate Adequate Platelet Morphology Normal Hypochromasia 1+ Sodium Level 138 MMOL/L (136-145) Potassium Level 4.1 MMOL/L (3.5-5.1) Chloride Level 102 MMOL/L (98-107) Carbon Dioxide Level 30 MMOL/L (21-32) Anion Gap 7 mmol/L (5-15) Blood Urea Nitrogen 11 mg/dL (7-18) Creatinine 0.6 MG/DL (0.55-1.30) Estimat Glomerular Filtration Rate mL/min (>60) Glucose Level 161 MG/DL (74-106) H Calcium Level 8.6 MG/DL (8.5-10.1) Neurologic Exam Objective PHYSICAL EXAMINATION: GENERAL: She is a well-developed, well-nourished, pleasant lady, lying in bed, in no acute distress. HEAD: Normocephalic and atraumatic. NECK: No neck rigidity was observed. EENT: Examination benign. NEUROLOGIC EXAMINATION: MENTAL STATUS EXAMINATION: She was awake and alert. She was oriented to self and [facility] only. She had no idea where she was or what the date was. She was able to recall 3/3 words immediately, and could remember them in 1 minute and 3 minutes. She was was able to remember Presidents Trump through [place]. Her mathematical skills were impaired. Her visuospatial function was also impaired. SPEECH: She had no dysarthria. LANGUAGE: Could not be tested adequately. CRANIAL NERVE EXAMINATION: II: The visual jauregui were intact to confrontation testing. III, IV & : The external ocular movements were full and the pupils 3 mm in diameter, equal, round, regular, and reactive to light. V: She had normal facial sensations and the temporales, masseters, and pterygoids functioned normally. VII: She had normal facial expressions and no facial asymmetry. VIII: Her hearing seemed to be decreased bilaterally, but she had no nystagmus. IX: The palate moved symmetrically on phonation. X: She had no hoarseness of voice. XI: The sternocleidomastoids and trapezii functioned normally. XII: The tongue was in the midline without any fasciculations or atrophy. MOTOR SYSTEM: The tone was normal in all four extremities. Examination of muscle mass revealed no focal wasting. Examination of power revealed G 5/5 power except for G 4+/5 weakness in the iliopsoas muscles bilaterally. SENSORY EXAMINATION: She had intact sensations to pinprick and light touch. Other sensory modalities could not be tested. REFLEXES: Trace+ and bilaterally symmetrical at the biceps, triceps, brachioradialis, and knees, 0 at both ankles. The plantar responses were flexor bilaterally. COORDINATION: She performed well on [id number] testing. STANCE & GAIT: She refused to get out of bed. TREMOR (7-8 Hz): G 1/4 jaw, and H/N. Impression/Recommendations Diagnostic Impression 1. Ms. Doreen Ponce is an 82-year-old, right-handed, lady, who does have a past history of depression and possible dementia who for the last 10 days has had a cough and fever. On 04/25/17, she was noted to be increasingly confused, disoriented, and generally weak and was thus brought to the hospital. She had been throwing up and had not eaten much that day. 2. She feels unwell today. She has a headache. She has not been out of bed today. She continues to be cognitively better. The nausea has resolved. 3. On neurological examination, at this time, she continues to have problems with orientation, memory, visuospatial function, and higher cognitive function, however her cognitive function is significantly better compared to when she came in. She is generally stronger with mild weakness in the iliopsoas muscles bilaterally, and globally diminished deep tendon reflexes. She is now able to stand and walk with support on one side. 4. The CT scan of the brain without contrast performed at [facility] revealed significant atrophy and deep white matter changes, but no acute pathology. 5. Laboratory data available on my initial evaluation revealed that she was significantly anemic with a hemoglobin of 9.1, has a relatively benign chemistry panel except for an albumin of 2.8. She has a relatively normal urinalysis. 6. Further laboratory test have revealed an elevated BNP, low TSH, and a HB A1C elevated to 6.6%. 7. 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 It is unclear if she also has an underlying dementia. Recommendations 1. Continue present management. 2. Would continue aggressive antibiotic therapy and hydration. 3. Increase activity as tolerated. 4. Simple analgesics for headaches. 5. Observe closely. Pia Dunlap M.D., M.S.P.H. PIA DUNLAP Apr 29, 2017 12:55
[2017-04-29 16:00] VITALS: BP 133/69
--- NOTE | 2017-04-29 16:24 | Cardiology Report ---
APPROVED REPORT EKG Measurement Heart [id number] Normal sinus rhythm Left bundle branch block Abnormal ECG
[2017-04-29 19:27] LABS: PROTHROMBIN TIME 10.7 SEC (9.30-11.50)
[2017-04-30 04:10] VITALS: BP 159/86
[2017-04-30] MEDS: Albuterol/Ipratropium 3ml neb HHN SCH ×3 (07:00→20:01)
[2017-04-30 07:48] LABS: ANION GAP 5 mmol/L (5-15); CALCIUM 8.6 MG/DL (8.5-10.1); CARBON DIOXIDE 31 MMOL/L (21-32); CHLORIDE 104 MMOL/L (98-107); CREATININE 0.6 MG/DL (0.55-1.30); POTASSIUM 3.6 MMOL/L (3.5-5.1); SODIUM 140 MMOL/L (136-145)
[2017-04-30 08:00] VITALS: BP 140/69
[2017-04-30 08:33] LABS: BASOPHILS % (AUTO) 0.5 % (0.0-2.0); LYMPHOCYTES % (AUTO) 34.4 % (20.0-45.0); MEAN CORPUSCULAR HEMOGLOBIN 26.9 PG (27.0-31.0); MEAN CORPUSCULAR HGB CONC 32.3 G/DL (32.0-36.0); MEAN CORPUSCULAR VOLUME 83 FL (80-99); MEAN PLATELET VOLUME 6.9 FL (6.5-10.1); MONOCYTES % (AUTO) 11.4 % (1.0-10.0); NEUTROPHILS % (AUTO) 53.6 % (45.0-75.0); PLATELET COUNT 171 K/UL (150-450); RED BLOOD COUNT 3.32 M/UL (4.20-5.40); RED CELL DISTRIBUTION WIDTH 13.8 % (11.6-14.8); WHITE BLOOD COUNT 4.8 K/UL (4.8-10.8)
[2017-04-30] MEDS: Aspirin EC 81mg tab ORAL SCH (09:18)
[2017-04-30] MEDS: Phospha 250 Neutral tab ORAL SCH ×4 (09:19→17:38)
[2017-04-30] MEDS: Losartan 25mg tab ORAL SCH (09:19)
[2017-04-30] MEDS: Heparin 5000 units/ml inj SUBQ SCH ×2 (09:23→21:10)
[2017-04-30] MEDS: Albuterol/Ipratropium 3ml neb HHN PRN (09:39)
[2017-04-30 12:00] VITALS: BP 123/75
--- NOTE | 2017-04-30 12:07 | Pulmonology Progress Note ---
Assessment/Plan Assessment/Plan ASSESSMENT Acute purulent bronchitis with bronchospasm Anemia possible dementia possible toxic encephalopathy 2 to infectious process Leukopenia LBBB HTN Anemia iron deficiency and of chronic disease Depression PLAN OF CARE MS floor O2 HHN tid ATC and prn , s/p IV steroids after this am dose oral Prednisone with fast tapering down Empiric abx - dc as per PMD due to possible SE of leukopenia, heme eval appreciated WBC up sputum cx if able CXR no definite acute process a/tussive prn BP management with ARB DVT prophylaxis ECHO with pEF 60-65% and RVSP of 40 continue ASA neuro follows CT head no acute IC pathology PT to mobilize the patient OOB with walker Psych follows Continue Lexapro anemia w/up c/w anemia of iron deficiency and anemia of chronic disease s/p 1 dose of Venofer check stool OB, CEA P replaced, check P in am case discussed and evaluated by supervising physician Subjective Allergies: Coded Allergies: No Known Allergies (Unverified , 04/25/17) Subjective respiratory status improving WBC better today Objective Last 24 Hour Vital Signs Date Time Temp Pulse Resp B/P (MAP) Pulse Ox O2 Delivery O2 Flow Rate FiO2 04/30/17 09:19 140/69 04/30/17 08:00 98.1 82 18 140/69 94 Room Air 04/30/17 07:22 Nasal Cannula 04/30/17 07:22 Nasal Cannula 04/30/17 07:22 Nasal Cannula 04/30/17 07:21 Nasal Cannula 04/30/17 04:10 98.3 73 21 159/86 95 Nasal Cannula 2.0 04/29/17 20:34 95 20 96 Nasal Cannula 2.0 04/29/17 20:19 95 Nasal Cannula 2.0 04/29/17 20:19 Nasal Cannula 2.0 04/29/17 20:18 28 04/29/17 20:18 105 24 94 Nasal Cannula 2.0 04/29/17 16:00 98.0 79 18 133/69 98 Room Air 04/29/17 13:00 Nasal Cannula 04/29/17 13:00 Nasal Cannula 04/29/17 12:28 98.3 98 18 155/90 98 Room Air Objective General Appearance: no acute distress, elderly female HEENT: normocephalic, atraumatic, anicteric, mucous membranes moist Respiratory/Chest: few isolated expiratory wheezes , overall clear Cardiovascular: normal rate, regular rhythm Abdomen: normal bowel sounds, soft, non tender Genitourinary: normal external genitalia Extremities: no edema Neurologic/Psychiatric: abnormal gait, alert, responsive, normal mood/affect Musculoskeletal: atrophy - BLE Laboratory Tests 04/29/17 16:47: Prothrombin Time 10.7, Prothromb Time International Ratio 1.0, PTT Mixing Study [Pending], APTT Patient/Control Mix [Pending], Mix PTT Incubation Time [Pending] , Mix PTT Normal/Saline 1:1 Immediate [Pending], Thrombin Time Normal Plasma [ Pending], Fibrinogen 379, Homocystine [Pending], Hepatitis A IgM Antibody [ Pending], Hepatitis B Surface Antigen [Pending], Hepatitis B Core IgM Antibody [ Pending], Hepatitis C Antibody [Pending] 04/30/17 05:15: White Blood Count 4.8#, Red Blood Count 3.32L, Hemoglobin 8.9L, Hematocrit 27.6L , Mean Corpuscular Volume 83, Mean Corpuscular Hemoglobin 26.9L, Mean Corpuscular Hemoglobin Concent 32.3, Red Cell Distribution Width 13.8, Platelet Count 171, Mean Platelet Volume 6.9, Neutrophils (%) (Auto) 53.6, Lymphocytes (% ) (Auto) 34.4, Monocytes (%) (Auto) 11.4H, Eosinophils (%) (Auto) 0.0, Basophils (%) (Auto) 0.5, Sodium Level 140, Potassium Level 3.6, Chloride Level 104, Carbon Dioxide Level 31, Anion Gap 5, Blood Urea Nitrogen 16, Creatinine 0.6, Estimat Glomerular Filtration Rate , Glucose Level 92, Calcium Level 8.6, Phosphorus Level 3.5 Current Medications Medications (Trade) Dose Ordered Sig/Jovani Route PRN Reason Start Time Stop Time Status Last Admin Dose Admin Acetaminophen (Tylenol) 325 mg Q6H PRN ORAL Mild Pain/Temp > 100.5 04/26/17 21:45 05/26/17 21:44 04/29/17 22:13 Albuterol/ Ipratropium (Albuterol/ Ipratropium) 3 ml Q4H PRN HHN SHORTNESS OF BREATH 04/28/17 15:00 05/03/17 14:59 04/30/17 09:39 Albuterol/ Ipratropium (Albuterol/ Ipratropium) 3 ml TIDRT HHN 04/28/17 19:00 05/02/17 21:59 04/29/17 20:20 Aspirin (Ecotrin) 81 mg DAILY ORAL 04/26/17 09:00 05/26/17 08:59 04/30/17 09:18 Escitalopram Oxalate (Lexapro) 10 mg DAILY ORAL 04/26/17 09:00 05/26/17 08:59 04/30/17 09:30 Gabapentin (Neurontin) 100 mg THREE TIMES A DAY ORAL 04/26/17 09:00 05/26/17 08:59 04/30/17 09:19 Heparin Sodium (Porcine) (Heparin 5000 units/ml) 5,000 units Q12HR SUBQ 04/27/17 11:00 05/27/17 10:59 04/30/17 09:23 Losartan Potassium (Cozaar) 25 mg DAILY ORAL 04/26/17 09:00 05/26/17 08:59 04/30/17 09:19 Phosphorus (Phospha 250 Neutral) 250 mg THREE TIMES A DAY ORAL 04/28/17 18:00 05/28/17 17:59 04/30/17 09:19 Prednisone (predniSONE) 10 mg DAILY ORAL 05/03/17 09:00 05/03/17 09:01 Prednisone (predniSONE) 20 mg DAILY ORAL 05/02/17 09:00 05/02/17 09:01 Prednisone (predniSONE) 30 mg DAILY ORAL 05/01/17 09:00 05/01/17 09:01 Tramadol HCl (Ultram) 50 mg Q6H PRN ORAL Severe Pain (Pain Scale 7-10) 04/26/17 02:00 05/03/17 01:59 04/29/17 20:46 [facility] Albarran NP Apr 30, 2017 12:07
--- NOTE | 2017-04-30 12:11 | Neurology Progress Note ---
Interim History Interim History Interim History Ms. Anthony Ponce feels better today. She just got out of her shower. She denies any headache. She was able to walk to the bathroom last night. The mind is clear. She is not lightheaded. She denies any nausea. She feels stronger. She is wheezing less and denies any shortness of breath. She denies any new neurologic symptoms. Review of Systems Neuro Review of Systems Benign. Objective Physical Exam Last Vital Signs Date Time Temp Pulse Resp B/P (MAP) Pulse Ox O2 Delivery O2 Flow Rate FiO2 04/30/17 09:19 140/69 04/30/17 08:00 98.1 82 18 94 Room Air 04/30/17 07:21 28 04/30/17 04:10 2.0 Laboratory Tests Test 04/29/17 16:47 04/30/17 05:15 Prothrombin Time 10.7 SEC (9.30-11.50) Prothromb Time International Ratio 1.0 (0.9-1.1) PTT Mixing Study Pending APTT Patient/Control Mix Pending Mix PTT Incubation Time Pending Mix PTT Normal/Saline 1:1 Immediate Pending Thrombin Time Normal Plasma Pending Fibrinogen 379 mg/dL (200-400) Homocystine Pending Hepatitis A IgM Antibody Pending Hepatitis B Surface Antigen Pending Hepatitis B Core IgM Antibody Pending Hepatitis C Antibody Pending White Blood Count 4.8 K/UL (4.8-10.8) # Red Blood Count 3.32 M/UL (4.20-5.40) L Hemoglobin 8.9 G/DL (12.0-16.0) L Hematocrit 27.6 % (37.0-47.0) L Mean Corpuscular Volume 83 FL (80-99) Mean Corpuscular Hemoglobin 26.9 PG (27.0-31.0) L Mean Corpuscular Hemoglobin Concent 32.3 G/DL (32.0-36.0) Red Cell Distribution Width 13.8 % (11.6-14.8) Platelet Count 171 K/UL (150-450) Mean Platelet Volume 6.9 FL (6.5-10.1) Neutrophils (%) (Auto) 53.6 % (45.0-75.0) Lymphocytes (%) (Auto) 34.4 % (20.0-45.0) Monocytes (%) (Auto) 11.4 % (1.0-10.0) H Eosinophils (%) (Auto) 0.0 % (0.0-3.0) Basophils (%) (Auto) 0.5 % (0.0-2.0) Sodium Level 140 MMOL/L (136-145) Potassium Level 3.6 MMOL/L (3.5-5.1) Chloride Level 104 MMOL/L (98-107) Carbon Dioxide Level 31 MMOL/L (21-32) Anion Gap 5 mmol/L (5-15) Blood Urea Nitrogen 16 mg/dL (7-18) Creatinine 0.6 MG/DL (0.55-1.30) Estimat Glomerular Filtration Rate mL/min (>60) Glucose Level 92 MG/DL (74-106) Calcium Level 8.6 MG/DL (8.5-10.1) Phosphorus Level 3.5 MG/DL (2.5-4.9) Neurologic Exam Objective PHYSICAL EXAMINATION: GENERAL: She is a well-developed, well-nourished, pleasant lady, sitting up in a wheelchair, in no acute distress. HEAD: Normocephalic and atraumatic. NECK: No neck rigidity was observed. EENT: Examination benign. NEUROLOGIC EXAMINATION: MENTAL STATUS EXAMINATION: She was awake and alert. She was oriented to self and [facility] only. She had no idea of what the date was. She was able to recall 3/3 words immediately, and could remember them in 1 minute and 3 minutes. She was was able to remember Presidents Trump through [facility]. Her mathematical skills were impaired. Her visuospatial function was also impaired. SPEECH: She had no dysarthria. LANGUAGE: Could not be tested adequately. CRANIAL NERVE EXAMINATION: II: The visual jauregui were intact to confrontation testing. III, IV & : The external ocular movements were full and the pupils 3 mm in diameter, equal, round, regular, and reactive to light. V: She had normal facial sensations and the temporales, masseters, and pterygoids functioned normally. VII: She had normal facial expressions and no facial asymmetry. VIII: Her hearing seemed to be decreased bilaterally, but she had no nystagmus. IX: The palate moved symmetrically on phonation. X: She had no hoarseness of voice. XI: The sternocleidomastoids and trapezii functioned normally. XII: The tongue was in the midline without any fasciculations or atrophy. MOTOR SYSTEM: The tone was normal in all four extremities. Examination of muscle mass revealed no focal wasting. Examination of power revealed G 5/5 power except for G 4+/5 weakness in the iliopsoas muscles bilaterally. SENSORY EXAMINATION: She had intact sensations to pinprick and light touch. Other sensory modalities could not be tested. REFLEXES: Trace+ and bilaterally symmetrical at the biceps, triceps, brachioradialis, and knees, 0 at both ankles. The plantar responses were flexor bilaterally. COORDINATION: She performed well on [id number] testing. STANCE & GAIT: Were deferred. TREMOR (7-8 Hz): G 1/4 jaw, H/N and UE. Impression/Recommendations Diagnostic Impression 1. Ms. Doreen Ponce is an 82-year-old, right-handed, lady, who does have a past history of depression and possible dementia who for the last 10 days has had a cough and fever. On 04/25/17, she was noted to be increasingly confused, disoriented, and generally weak and was thus brought to the hospital. She had been throwing up and had not eaten much that day. 2. She feels better today. The headache has resolved. She has not walked today. She continues to be cognitively better. The nausea has resolved. 3. On neurological examination, at this time, she continues to have problems with orientation, memory, visuospatial function, and higher cognitive function, however her cognitive function is significantly better compared to when she came in. She is generally stronger with mild weakness in the iliopsoas muscles bilaterally, and globally diminished deep tendon reflexes. She is now able to stand and walk with support on one side. Her tremor is minimally worse. 4. The CT scan of the brain without contrast performed at [facility] revealed significant atrophy and deep white matter changes, but no acute pathology. 5. Laboratory data available on my initial evaluation revealed that she was significantly anemic with a hemoglobin of 9.1, has a relatively benign chemistry panel except for an albumin of 2.8. She has a relatively normal urinalysis. 6. Further laboratory test have revealed an elevated BNP, low TSH, and a HB A1C elevated to 6.6%. 7. 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 It is unclear if she also has an underlying dementia. Recommendations 1. Continue present management. 2. Would continue aggressive antibiotic therapy and hydration. 3. Correct HB to >10 G. 4. Increase activity as tolerated. 5. Observe closely. Pia Dunlap M.D., M.S.P.Charlie. PIA DUNLAP Apr 30, 2017 12:11
--- NOTE | 2017-04-30 13:13 | Infectious Diseases Prog Note ---
Assessment/Plan Assessment/Plan ID consult dictated # [id number] Subjective Allergies: Coded Allergies: No Known Allergies (Unverified , 04/25/17) Objective Vital Signs Last 24 Hour Vital Signs Date Time Temp Pulse Resp B/P (MAP) Pulse Ox O2 Delivery O2 Flow Rate FiO2 04/30/17 13:00 80 20 95 Nasal Cannula 2.0 28 04/30/17 09:19 140/69 04/30/17 08:00 98.1 82 18 140/69 94 Room Air 04/30/17 07:22 Nasal Cannula 04/30/17 07:22 Nasal Cannula 04/30/17 07:22 Nasal Cannula 04/30/17 07:21 Nasal Cannula 28 04/30/17 04:10 98.3 73 21 159/86 95 Nasal Cannula 2.0 04/29/17 20:34 95 20 96 Nasal Cannula 2.0 04/29/17 20:19 95 Nasal Cannula 2.0 04/29/17 20:19 Nasal Cannula 2.0 28 04/29/17 20:18 28 04/29/17 20:18 105 24 94 Nasal Cannula 2.0 04/29/17 16:00 98.0 79 18 133/69 98 Room Air Height (Feet): 4 Height (Inches): 11.00 Weight (Pounds): 139 Laboratory Tests Test 04/29/17 16:47 04/30/17 05:15 Prothrombin Time 10.7 SEC (9.30-11.50) Prothromb Time International Ratio 1.0 (0.9-1.1) PTT Mixing Study Pending APTT Patient/Control Mix Pending Mix PTT Incubation Time Pending Mix PTT Normal/Saline 1:1 Immediate Pending Thrombin Time Normal Plasma Pending Fibrinogen 379 mg/dL (200-400) Homocystine Pending Hepatitis A IgM Antibody Pending Hepatitis B Surface Antigen Pending Hepatitis B Core IgM Antibody Pending Hepatitis C Antibody Pending White Blood Count 4.8 K/UL (4.8-10.8) # Red Blood Count 3.32 M/UL (4.20-5.40) L Hemoglobin 8.9 G/DL (12.0-16.0) L Hematocrit 27.6 % (37.0-47.0) L Mean Corpuscular Volume 83 FL (80-99) Mean Corpuscular Hemoglobin 26.9 PG (27.0-31.0) L Mean Corpuscular Hemoglobin Concent 32.3 G/DL (32.0-36.0) Red Cell Distribution Width 13.8 % (11.6-14.8) Platelet Count 171 K/UL (150-450) Mean Platelet Volume 6.9 FL (6.5-10.1) Neutrophils (%) (Auto) 53.6 % (45.0-75.0) Lymphocytes (%) (Auto) 34.4 % (20.0-45.0) Monocytes (%) (Auto) 11.4 % (1.0-10.0) H Eosinophils (%) (Auto) 0.0 % (0.0-3.0) Basophils (%) (Auto) 0.5 % (0.0-2.0) Sodium Level 140 MMOL/L (136-145) Potassium Level 3.6 MMOL/L (3.5-5.1) Chloride Level 104 MMOL/L (98-107) Carbon Dioxide Level 31 MMOL/L (21-32) Anion Gap 5 mmol/L (5-15) Blood Urea Nitrogen 16 mg/dL (7-18) Creatinine 0.6 MG/DL (0.55-1.30) Estimat Glomerular Filtration Rate mL/min (>60) Glucose Level 92 MG/DL (74-106) Calcium Level 8.6 MG/DL (8.5-10.1) Phosphorus Level 3.5 MG/DL (2.5-4.9) Current Medications Medications (Trade) Dose Ordered Sig/Jovani Route PRN Reason Start Time Stop Time Status Last Admin Dose Admin Acetaminophen (Tylenol) 325 mg Q6H PRN ORAL Mild Pain/Temp > 100.5 04/26/17 21:45 05/26/17 21:44 04/29/17 22:13 Albuterol/ Ipratropium (Albuterol/ Ipratropium) 3 ml Q4H PRN HHN SHORTNESS OF BREATH 04/28/17 15:00 05/03/17 14:59 04/30/17 09:39 Albuterol/ Ipratropium (Albuterol/ Ipratropium) 3 ml TIDRT HHN 04/28/17 19:00 05/02/17 21:59 04/30/17 12:58 Aspirin (Ecotrin) 81 mg DAILY ORAL 04/26/17 09:00 05/26/17 08:59 04/30/17 09:18 Escitalopram Oxalate (Lexapro) 10 mg DAILY ORAL 04/26/17 09:00 05/26/17 08:59 04/30/17 09:30 Gabapentin (Neurontin) 100 mg THREE TIMES A DAY ORAL 04/26/17 09:00 05/26/17 08:59 04/30/17 13:06 Heparin Sodium (Porcine) (Heparin 5000 units/ml) 5,000 units Q12HR SUBQ 04/27/17 11:00 05/27/17 10:59 04/30/17 09:23 Losartan Potassium (Cozaar) 25 mg DAILY ORAL 04/26/17 09:00 05/26/17 08:59 04/30/17 09:19 Phosphorus (Phospha 250 Neutral) 250 mg THREE TIMES A DAY ORAL 04/28/17 18:00 05/28/17 17:59 04/30/17 13:06 Prednisone (predniSONE) 10 mg DAILY ORAL 05/03/17 09:00 05/03/17 09:01 Prednisone (predniSONE) 20 mg DAILY ORAL 05/02/17 09:00 05/02/17 09:01 Prednisone (predniSONE) 30 mg DAILY ORAL 05/01/17 09:00 05/01/17 09:01 Tramadol HCl (Ultram) 50 mg Q6H PRN ORAL Severe Pain (Pain Scale 7-10) 04/26/17 02:00 05/03/17 01:59 04/29/17 20:46 GRACE SOFIA Apr 30, 2017 13:12
--- NOTE | 2017-04-30 13:28 | Cardiology Progress Note ---
Assessment/Plan Assessment/Plan leukopenia likely related to meds improved already bronchospasm bronchitis toxic metabolic encephalopathy lbbb chronic knee issues and back issue htn hs anemia overall better dtr had call me about pt wheezing she bob bettetr on my exam i donot want to givne her toom cuh ihmanshu agonist has min bronchospasm on steroid wbc now normal off levaquin and zosyn due to low wbc now better hhn is making her tremulous oob d/w hem d/w dtr d/w sister id consulted to see if new abx needed Objective Last 24 Hour Vital Signs Date Time Temp Pulse Resp B/P (MAP) Pulse Ox O2 Delivery O2 Flow Rate FiO2 04/30/17 13:12 84 20 96 Nasal Cannula 2.0 28 04/30/17 13:11 28 04/30/17 13:00 80 20 95 Nasal Cannula 2.0 28 04/30/17 12:00 97.0 102 20 123/75 93 Room Air 04/30/17 09:19 140/69 04/30/17 08:00 98.1 82 18 140/69 94 Room Air 04/30/17 07:22 Nasal Cannula 04/30/17 07:22 Nasal Cannula 04/30/17 07:22 Nasal Cannula 04/30/17 07:21 Nasal Cannula 28 04/30/17 04:10 98.3 73 21 159/86 95 Nasal Cannula 2.0 04/29/17 20:34 95 20 96 Nasal Cannula 2.0 28 04/29/17 20:19 95 Nasal Cannula 2.0 28 04/29/17 20:19 Nasal Cannula 2.0 28 04/29/17 20:18 28 04/29/17 20:18 105 24 94 Nasal Cannula 2.0 28 04/29/17 16:00 98.0 79 18 133/69 98 Room Air Intake and Output 04/30/17 05/01/17 19:00 07:00 Intake Total 480 ml Balance 480 ml Intake Oral 480 ml # Voids 2 Laboratory Tests Test 04/29/17 16:47 04/30/17 05:15 Prothrombin Time 10.7 SEC (9.30-11.50) Prothromb Time International Ratio 1.0 (0.9-1.1) PTT Mixing Study Pending APTT Patient/Control Mix Pending Mix PTT Incubation Time Pending Mix PTT Normal/Saline 1:1 Immediate Pending Thrombin Time Normal Plasma Pending Fibrinogen 379 mg/dL (200-400) Homocystine Pending Hepatitis A IgM Antibody Pending Hepatitis B Surface Antigen Pending Hepatitis B Core IgM Antibody Pending Hepatitis C Antibody Pending White Blood Count 4.8 K/UL (4.8-10.8) # Red Blood Count 3.32 M/UL (4.20-5.40) L Hemoglobin 8.9 G/DL (12.0-16.0) L Hematocrit 27.6 % (37.0-47.0) L Mean Corpuscular Volume 83 FL (80-99) Mean Corpuscular Hemoglobin 26.9 PG (27.0-31.0) L Mean Corpuscular Hemoglobin Concent 32.3 G/DL (32.0-36.0) Red Cell Distribution Width 13.8 % (11.6-14.8) Platelet Count 171 K/UL (150-450) Mean Platelet Volume 6.9 FL (6.5-10.1) Neutrophils (%) (Auto) 53.6 % (45.0-75.0) Lymphocytes (%) (Auto) 34.4 % (20.0-45.0) Monocytes (%) (Auto) 11.4 % (1.0-10.0) H Eosinophils (%) (Auto) 0.0 % (0.0-3.0) Basophils (%) (Auto) 0.5 % (0.0-2.0) Sodium Level 140 MMOL/L (136-145) Potassium Level 3.6 MMOL/L (3.5-5.1) Chloride Level 104 MMOL/L (98-107) Carbon Dioxide Level 31 MMOL/L (21-32) Anion Gap 5 mmol/L (5-15) Blood Urea Nitrogen 16 mg/dL (7-18) Creatinine 0.6 MG/DL (0.55-1.30) Estimat Glomerular Filtration Rate mL/min (>60) Glucose Level 92 MG/DL (74-106) Calcium Level 8.6 MG/DL (8.5-10.1) Phosphorus Level 3.5 MG/DL (2.5-4.9) CELIO OQUENDO Apr 30, 2017 13:28
[2017-04-30 16:00] VITALS: BP 133/69
[2017-04-30] MEDS: traMADol 50mg tab ORAL PRN (16:49)
--- NOTE | 2017-04-30 19:45 | Consultation ---
DATE OF CONSULTATION: 04/30/2017 INFECTIOUS DISEASE CONSULTATION CONSULTING PHYSICIAN: Rc Chan M.D. PRIMARY ATTENDING PHYSICIAN: Raul Medel M.D. REASON FOR CONSULTATION: COPD exacerbation, leukopenia after antibiotic. HISTORY OF PRESENT ILLNESS: This is an 82-year-old [place]ian female admitted on 04/25/2017, complaining of productive cough, shortness of breath, wheezing, fatigue, weakness with impression of COPD and got started on antibiotics including Zosyn and Levaquin. The patient developed leukopenia and antibiotic was stopped by primary doctor. PAST MEDICAL HISTORY: Significant for hypertension, depression, degenerative joint disease with osteoarthritis, spinal stenosis, dementia, and anemia. ALLERGIES: No known drug allergy. SOCIAL HISTORY: , lives at home. No history of alcohol, drug abuse, or smoking. The patient believes that she got pneumonia vaccine, but did not get flu shot in 2017. ALLERGIES: No known drug allergies. MEDICATIONS: Getting prednisone, DuoNeb inhaler, heparin, Tylenol, aspirin, Lexapro, Neurontin, Cozaar, and tramadol. REVIEW OF SYSTEMS: She has coughing. No fever, no chills, but on the day of admission had temperature of 101.2. The patient is ambulatory to the bathroom with walker. She has chronic pain in the feet. PHYSICAL EXAMINATION: VITAL SIGNS: Temperature 98.1, pulse 82, blood pressure 140/69. GENERAL APPEARANCE: No acute distress. HEAD AND NECK: She has pink conjunctivae. HEART: Regular. Normal rate. LUNGS: Clear. ABDOMEN: Soft, nontender. EXTREMITIES: She has no edema. LABORATORY AND DIAGNOSTIC DATA: WBC today is 4.8, hemoglobin 8.9, hematocrit 27.6, and platelets 171,000. Sodium 140, potassium 3.6, chloride 104, bicarbonate 31, BUN 16, creatinine 0.6, and glucose 92. Urine culture, mixed gram-positive organism. Blood culture x2 are negative. Chest x-ray showed atelectasis, otherwise clear. Head CT, no acute bleeding, edema, mass effect, or midline shift. IMPRESSION: The patient seems to have acute bronchitis, has also chronic component, has leukopenia that seems to be antibiotic related, leukocytosis resolved with stopping antibiotic, hypertension, degenerative joint disease, dementia, and anemia. RECOMMENDATION: Observe off antibiotic. Influenza vaccination before discharge. At the end of my exam, I thank Dr. Medel for involving me in the care of this patient. Rc Chan M.D. DR: Korin JOB#: [id number] CC: [place]
[2017-04-30 20:17] VITALS: BP 158/90
--- NOTE | 2017-04-30 22:07 | General Progress Note ---
Assessment/Plan Assessment/Plan Assessment/Plan #. Leukopenia, likely related to abx use of Zosyn vs levaquin, both have incidence of leukopenia in prior patients --> both now dc'd --> wbc count normalized --> flow cyt reviewed, with no abnormalities #. Anemia 2/2 chronic disease, continue to closely monitor # Coagulopathy, likely reactive --> on repeat has improved #. Dementia # COPD exacerbation s/p steroid administration Subjective Constitutional: Reports: no symptoms HEENT: Reports: no symptoms Cardiovascular: Reports: no symptoms Respiratory: Reports: no symptoms Gastrointestinal/Abdominal: Reports: no symptoms Genitourinary: Reports: no symptoms Neurologic/Psychiatric: Reports: no symptoms Endocrine: Reports: no symptoms Hematologic/Lymphatic: Reports: anemia Allergies: Coded Allergies: No Known Allergies (Unverified , 04/25/17) Subjective no events Objective Last 24 Hour Vital Signs Date Time Temp Pulse Resp B/P (MAP) Pulse Ox O2 Delivery O2 Flow Rate FiO2 04/30/17 20:17 97.7 95 18 158/90 93 04/30/17 20:12 94 18 94 Nasal Cannula 2.0 28 04/30/17 19:59 91 18 94 Nasal Cannula 2.0 28 04/30/17 19:57 94 Nasal Cannula 2.0 28 04/30/17 16:00 97.7 91 18 133/69 94 Room Air 04/30/17 13:12 84 20 96 Nasal Cannula 2.0 28 04/30/17 13:11 28 04/30/17 13:00 80 20 95 Nasal Cannula 2.0 28 04/30/17 12:00 97.0 102 20 123/75 93 Room Air 04/30/17 09:19 140/69 04/30/17 08:00 98.1 82 18 140/69 94 Room Air 04/30/17 07:22 Nasal Cannula 04/30/17 07:22 Nasal Cannula 04/30/17 07:22 Nasal Cannula 04/30/17 07:21 Nasal Cannula 04/30/17 04:10 98.3 73 21 159/86 95 Nasal Cannula 2.0 Intake and Output 04/30/17 05/01/17 19:00 07:00 Intake Total 720 ml Balance 720 ml Intake Oral 720 ml # Voids 4 Laboratory Tests 04/30/17 05:15: White Blood Count 4.8#, Red Blood Count 3.32L, Hemoglobin 8.9L, Hematocrit 27.6L , Mean Corpuscular Volume 83, Mean Corpuscular Hemoglobin 26.9L, Mean Corpuscular Hemoglobin Concent 32.3, Red Cell Distribution Width 13.8, Platelet Count 171, Mean Platelet Volume 6.9, Neutrophils (%) (Auto) 53.6, Lymphocytes (% ) (Auto) 34.4, Monocytes (%) (Auto) 11.4H, Eosinophils (%) (Auto) 0.0, Basophils (%) (Auto) 0.5, Sodium Level 140, Potassium Level 3.6, Chloride Level 104, Carbon Dioxide Level 31, Anion Gap 5, Blood Urea Nitrogen 16, Creatinine 0.6, Estimat Glomerular Filtration Rate , Glucose Level 92, Calcium Level 8.6, Phosphorus Level 3.5 04/30/17 12:00: Stool Occult Blood [Pending] Height (Feet): 4 Height (Inches): 11.00 Weight (Pounds): 139 General Appearance: alert EENT: normal ENT inspection Neck: normal alignment Cardiovascular: normal rate Respiratory/Chest: lungs clear Abdomen: non tender Extremities: non-tender Edema: 1+ Leg (L), 1+ Leg (R) Edema: mild edema Neurologic: alert Skin: normal pigmentation Miguel Angel Brady Apr 30, 2017 22:07
[2017-05-01] MEDS: traMADol 50mg tab ORAL PRN ×2 (01:42→20:56)
[2017-05-01 05:06] VITALS: BP 147/86
[2017-05-01] MEDS: Albuterol/Ipratropium 3ml neb HHN SCH ×3 (07:33→20:34)
[2017-05-01 08:00] VITALS: BP 141/78
--- NOTE | 2017-05-01 08:15 | Consultation ---
DATE OF CONSULTATION: NOTE: POOR AUDIO QUALITY HEMATOLOGY/ONCOLOGY CONSULTATION CONSULTING PHYSICIAN: Miguel Angel Brady M.D. REQUESTING PHYSICIAN: Raul Medel M.D. REASON FOR CONSULTATION: Abnormal peripheral blood smear, immature cells noted on peripheral blood smear. IDENTIFICATION DATA: Dear Dr. Medel, The patient is a pleasant 82-year-old female with past medical history, which is significant for hypertension and depression, brought in by family for rapid decline days per weeks with weakness and fatigue noted. She has had some coughing, some shortness of breath, feeling short of breath, also some cough. Chest x-ray is negative. since admission further assistance. She is noted to be much more confused, disoriented, noted to have a peripheral blood smear, which is abnormal. Hematology service was consulted for further evaluation and treatment. PAST MEDICAL HISTORY: Chronic knee pain. Patient's records reviewed from primary physician and knee problems going back to 2007. She was started on Neurontin recently. Past medical history also includes breast reduction surgery in 2002, obesity, depression, neuropathy, spinal stenosis, osteoarthritis, and DJD. ALLERGIES: Not allergic to any medication. SOCIAL HISTORY: and lives with her . No alcohol, tobacco, or illicit drug use. REVIEW OF SYSTEMS: CONSTITUTIONAL: No current fever or chills at this time in the hospital, however, prior to admission was the case. SKIN: No rashes, bumps, or itching. HEENT: No headache, hearing or vision changes. BREASTS: No lumps, pain, or discharge. PULMONARY: Cough and some shortness of breath. GASTROINTESTINAL: No nausea, vomiting, or diarrhea. GENITOURINARY: No dysuria, frequency, or urgency. MUSCULOSKELETAL: No joint swelling, muscle pain, or trauma. PHYSICAL EXAMINATION: VITAL SIGNS: Reviewed. GENERAL: No acute distress. PULMONARY: Decreased breath sounds. CARDIOVASCULAR: Regular rate. No S3 or S4. ABDOMEN: Soft, nontender, and nondistended. EXTREMITIES: There is 1+ edema. LABORATORY DATA: WBC of 2.4, hemoglobin 9.4, hematocrit 31, and platelet count of 163,000. Peripheral smear reviewed from 04/27/2017 shows rare immature cells and coagulopathy. Coag, INR 1.2 several days ago. A1c . ASSESSMENT AND RECOMMENDATIONS: 1. Leukopenia, potentially multifactorial, could be related to rare immature cells noted on peripheral smear concerning for myelodysplastic syndrome versus other disease. Obtain peripheral blood flow cytometry, in addition could be due to , which have been discontinued. 2. Anemia, secondary to iron-deficiency, begin the patient on iron. 3. Thrombocytopenia, potentially secondary to underlying medication versus infection. Continue to closely monitor. 4. Coagulopathy, also potentially secondary to disseminated intravascular coagulation versus other process. Labs have been obtained. Hepatitis panel is pending as well as human immunodeficiency virus. 5. Chronic knee and back pain. 6. Toxic metabolic encephalopathy. 7. Bronchitis. 8. Bronchospasm. 9. Continue to closely monitor. Miguel Angel Brady M.D. DR: Rea JOB#: [id number] CC:
[2017-05-01 08:17] LABS: BASOPHILS % (AUTO) 0.3 % (0.0-2.0); LYMPHOCYTES % (AUTO) 44.9 % (20.0-45.0); MEAN CORPUSCULAR HEMOGLOBIN 25.8 PG (27.0-31.0); MEAN CORPUSCULAR HGB CONC 31.1 G/DL (32.0-36.0); MEAN CORPUSCULAR VOLUME 83 FL (80-99); MEAN PLATELET VOLUME 7.1 FL (6.5-10.1); MONOCYTES % (AUTO) 12.4 % (1.0-10.0); NEUTROPHILS % (AUTO) 42.4 % (45.0-75.0); PLATELET COUNT 173 K/UL (150-450); RED BLOOD COUNT 3.43 M/UL (4.20-5.40); RED CELL DISTRIBUTION WIDTH 13.9 % (11.6-14.8); WHITE BLOOD COUNT 5.9 K/UL (4.8-10.8)
[2017-05-01] MEDS: Phospha 250 Neutral tab ORAL SCH ×4 (08:19→18:43)
[2017-05-01] MEDS: Aspirin EC 81mg tab ORAL SCH ×2 (08:19→11:30)
[2017-05-01] MEDS: Losartan 25mg tab ORAL SCH ×2 (08:20→09:47)
[2017-05-01 08:22] LABS: ANION GAP 1 mmol/L (5-15); CALCIUM 8.2 MG/DL (8.5-10.1); CARBON DIOXIDE 35 MMOL/L (21-32); CHLORIDE 103 MMOL/L (98-107); CREATININE 0.6 MG/DL (0.55-1.30); POTASSIUM 3.6 MMOL/L (3.5-5.1); SODIUM 139 MMOL/L (136-145)
[2017-05-01 09:02] LABS: VITAMIN D 25-OH TOTAL 19 ng/mL (.)
[2017-05-01 09:02] LABS: HOMOCYSTINE QUANT 5.3 umol/L (0.0-15.0)
--- NOTE | 2017-05-01 09:33 | Infectious Diseases Prog Note ---
Assessment/Plan Assessment/Plan A: Acute bronchitis COPD Leukopenia resolved HPN P: observe off antibiotic family want to take Influenza & Pneumococcal vaccine in outpatient Subjective ROS Limited/Unobtainable: No Constitutional: Reports: no symptoms Respiratory: Reports: shortness of breath, dry cough Cardiovascular: Reports: dyspnea on exertion Gastrointestinal/Abdominal: Reports: no symptoms Genitourinary: Reports: no symptoms Psychiatric: Reports: other - insomnia Allergies: Coded Allergies: No Known Allergies (Unverified , 04/25/17) Objective Vital Signs Last 24 Hour Vital Signs Date Time Temp Pulse Resp B/P (MAP) Pulse Ox O2 Delivery O2 Flow Rate FiO2 05/01/17 08:00 98.2 76 19 141/78 98 05/01/17 07:59 95 Nasal Cannula 2.0 28 05/01/17 07:59 Nasal Cannula 2.0 28 05/01/17 07:58 89 20 95 Nasal Cannula 2.0 27 05/01/17 07:55 74 18 91 Room Air 21 05/01/17 05:06 98.2 76 20 147/86 Nasal Cannula 2.0 94 04/30/17 20:17 97.7 95 18 158/90 93 04/30/17 20:12 94 18 94 Nasal Cannula 2.0 28 04/30/17 19:59 91 18 94 Nasal Cannula 2.0 28 04/30/17 19:57 94 Nasal Cannula 2.0 28 04/30/17 16:00 97.7 91 18 133/69 94 Room Air 04/30/17 13:12 84 20 96 Nasal Cannula 2.0 28 04/30/17 13:11 28 04/30/17 13:00 80 20 95 Nasal Cannula 2.0 28 04/30/17 12:00 97.0 102 20 123/75 93 Room Air Height (Feet): 4 Height (Inches): 11.00 Weight (Pounds): 139 General Appearance: no acute distress HEENT: mucous membranes moist Respiratory/Chest: decreased breath sounds, other - kyphosis Cardiovascular: normal rate Abdomen: soft, non tender Extremities: no edema Neurologic/Psychiatric: alert, responsive Laboratory Tests Test 04/30/17 12:00 05/01/17 07:00 Stool Occult Blood Pending White Blood Count 5.9 K/UL (4.8-10.8) Red Blood Count 3.43 M/UL (4.20-5.40) L Hemoglobin 8.9 G/DL (12.0-16.0) L Hematocrit 28.5 % (37.0-47.0) L Mean Corpuscular Volume 83 FL (80-99) Mean Corpuscular Hemoglobin 25.8 PG (27.0-31.0) L Mean Corpuscular Hemoglobin Concent 31.1 G/DL (32.0-36.0) L Red Cell Distribution Width 13.9 % (11.6-14.8) Platelet Count 173 K/UL (150-450) Mean Platelet Volume 7.1 FL (6.5-10.1) Neutrophils (%) (Auto) 42.4 % (45.0-75.0) L Lymphocytes (%) (Auto) 44.9 % (20.0-45.0) Monocytes (%) (Auto) 12.4 % (1.0-10.0) H Eosinophils (%) (Auto) 0.0 % (0.0-3.0) Basophils (%) (Auto) 0.3 % (0.0-2.0) Sodium Level 139 MMOL/L (136-145) Potassium Level 3.6 MMOL/L (3.5-5.1) Chloride Level 103 MMOL/L (98-107) Carbon Dioxide Level 35 MMOL/L (21-32) H Anion Gap 1 mmol/L (5-15) L Blood Urea Nitrogen 14 mg/dL (7-18) Creatinine 0.6 MG/DL (0.55-1.30) Estimat Glomerular Filtration Rate mL/min (>60) Glucose Level 90 MG/DL (74-106) Calcium Level 8.2 MG/DL (8.5-10.1) L Current Medications Medications (Trade) Dose Ordered Sig/Jovani Route PRN Reason Start Time Stop Time Status Last Admin Dose Admin Acetaminophen (Tylenol) 325 mg Q6H PRN ORAL Mild Pain/Temp > 100.5 04/26/17 21:45 05/26/17 21:44 04/29/17 22:13 Albuterol/ Ipratropium (Albuterol/ Ipratropium) 3 ml Q4H PRN HHN SHORTNESS OF BREATH 04/28/17 15:00 05/03/17 14:59 04/30/17 09:39 Albuterol/ Ipratropium (Albuterol/ Ipratropium) 3 ml TIDRT HHN 04/28/17 19:00 05/02/17 21:59 04/30/17 20:01 Aspirin (Ecotrin) 81 mg DAILY ORAL 04/26/17 09:00 05/26/17 08:59 04/30/17 09:18 Escitalopram Oxalate (Lexapro) 10 mg DAILY ORAL 04/26/17 09:00 05/26/17 08:59 04/30/17 09:30 Gabapentin (Neurontin) 100 mg BEDTIME ORAL 04/30/17 21:00 05/26/17 08:59 Heparin Sodium (Porcine) (Heparin 5000 units/ml) 5,000 units Q12HR SUBQ 04/27/17 11:00 05/27/17 10:59 04/30/17 21:10 Losartan Potassium (Cozaar) 25 mg DAILY ORAL 04/26/17 09:00 05/26/17 08:59 04/30/17 09:19 Phosphorus (Phospha 250 Neutral) 250 mg THREE TIMES A DAY ORAL 04/28/17 18:00 05/28/17 17:59 04/30/17 13:06 Prednisone (predniSONE) 10 mg DAILY ORAL 05/03/17 09:00 05/03/17 09:01 Prednisone (predniSONE) 20 mg DAILY ORAL 05/02/17 09:00 05/02/17 09:01 Tramadol HCl (Ultram) 50 mg Q6H PRN ORAL Severe Pain (Pain Scale 7-10) 04/26/17 02:00 05/03/17 01:59 05/01/17 01:42 GRACE SOFIA May 01, 2017 09:33
[2017-05-01] MEDS: Heparin 5000 units/ml inj SUBQ SCH ×2 (09:48→21:00)
--- NOTE | 2017-05-01 11:17 | Diagnostic Imaging Report ---
Indication: SOB Technique: One view of the chest Comparison: none Findings: Bilateral chronic perihilar interstitial markings and bronchial wall thickening again noted. Lungs and pleural spaces are otherwise clear. The heart size is normal Impression: Unchanged, over one week, findings as above.
--- NOTE | 2017-05-01 11:36 | Neurology Progress Note ---
Interim History Interim History Interim History Ms. Anthony Ponce feels well today. She is in bed and just finished her breakfast. She denies any headache. The mind is clear. She is not lightheaded. She denies any nausea. She feels stronger. She walked well yesterday. She denies any shortness of breath. She denies any new neurologic symptoms. Review of Systems Neuro Review of Systems Benign. Objective Physical Exam Last Vital Signs Date Time Temp Pulse Resp B/P (MAP) Pulse Ox O2 Delivery O2 Flow Rate FiO2 05/01/17 09:47 141/71 05/01/17 08:00 98.2 76 19 98 05/01/17 07:59 Nasal Cannula 2.0 28 Laboratory Tests Test 04/30/17 12:00 05/01/17 07:00 Stool Occult Blood Pending White Blood Count 5.9 K/UL (4.8-10.8) Red Blood Count 3.43 M/UL (4.20-5.40) L Hemoglobin 8.9 G/DL (12.0-16.0) L Hematocrit 28.5 % (37.0-47.0) L Mean Corpuscular Volume 83 FL (80-99) Mean Corpuscular Hemoglobin 25.8 PG (27.0-31.0) L Mean Corpuscular Hemoglobin Concent 31.1 G/DL (32.0-36.0) L Red Cell Distribution Width 13.9 % (11.6-14.8) Platelet Count 173 K/UL (150-450) Mean Platelet Volume 7.1 FL (6.5-10.1) Neutrophils (%) (Auto) 42.4 % (45.0-75.0) L Lymphocytes (%) (Auto) 44.9 % (20.0-45.0) Monocytes (%) (Auto) 12.4 % (1.0-10.0) H Eosinophils (%) (Auto) 0.0 % (0.0-3.0) Basophils (%) (Auto) 0.3 % (0.0-2.0) Sodium Level 139 MMOL/L (136-145) Potassium Level 3.6 MMOL/L (3.5-5.1) Chloride Level 103 MMOL/L (98-107) Carbon Dioxide Level 35 MMOL/L (21-32) H Anion Gap 1 mmol/L (5-15) L Blood Urea Nitrogen 14 mg/dL (7-18) Creatinine 0.6 MG/DL (0.55-1.30) Estimat Glomerular Filtration Rate mL/min (>60) Glucose Level 90 MG/DL (74-106) Calcium Level 8.2 MG/DL (8.5-10.1) L Neurologic Exam Objective PHYSICAL EXAMINATION: GENERAL: She is a well-developed, well-nourished, pleasant lady, sitting up in a wheelchair, in no acute distress. HEAD: Normocephalic and atraumatic. NECK: No neck rigidity was observed. EENT: Examination benign. NEUROLOGIC EXAMINATION: MENTAL STATUS EXAMINATION: She was awake and alert. She was oriented to self, April and [facility] [place]. She did not know the date or year. She was able to recall 3/3 words immediately, and could remember them in 1 minute and 3 minutes. She was was able to remember Presidents Trump through Zachary. Her mathematical skills were impaired. Her visuospatial function was also impaired. SPEECH: She had no dysarthria. LANGUAGE: Could not be tested adequately. CRANIAL NERVE EXAMINATION: II: The visual jauregui were intact to confrontation testing. III, IV & : The external ocular movements were full and the pupils 3 mm in diameter, equal, round, regular, and reactive to light. V: She had normal facial sensations and the temporales, masseters, and pterygoids functioned normally. VII: She had normal facial expressions and no facial asymmetry. VIII: Her hearing seemed to be decreased bilaterally, but she had no nystagmus. IX: The palate moved symmetrically on phonation. X: She had no hoarseness of voice. XI: The sternocleidomastoids and trapezii functioned normally. XII: The tongue was in the midline without any fasciculations or atrophy. MOTOR SYSTEM: The tone was normal in all four extremities. Examination of muscle mass revealed no focal wasting. Examination of power revealed G 5/5 power except for G 4+/5 weakness in the iliopsoas muscles bilaterally. SENSORY EXAMINATION: She had intact sensations to pinprick and light touch. Other sensory modalities could not be tested. REFLEXES: Trace+ and bilaterally symmetrical at the biceps, triceps, brachioradialis, and knees, 0 at both ankles. The plantar responses were flexor bilaterally. COORDINATION: She performed well on [id number] testing. STANCE & GAIT: Were deferred. TREMOR (7-8 Hz): G 1/4 jaw, G Tr/4 in H/N and UEs. Impression/Recommendations Diagnostic Impression 1. Ms. Doreen Ponce is an 82-year-old, right-handed, lady, who does have a past history of depression and possible dementia who 10 days prior to admission developed a cough and fever. On 04/25/17, she was noted to be increasingly confused, disoriented, and generally weak and was thus brought to the hospital. She had been throwing up and had not eaten much that day. 2. She continues to feel better. The headache has resolved. She has not walked today but did walk yesterday. She continues to be cognitively better. The nausea has resolved. 3. On neurological examination, at this time, she continues to have problems with orientation, memory, visuospatial function, and higher cognitive function, however her cognitive function is significantly better compared to when she came in. She is generally stronger with mild weakness in the iliopsoas muscles bilaterally, she has globally diminished deep tendon reflexes. She is now able to stand and walk with support on one side. Her tremor is stable. 4. The CT scan of the brain without contrast performed at [facility] revealed significant atrophy and deep white matter changes, but no acute pathology. 5. Laboratory data available on my initial evaluation revealed that she was significantly anemic with a hemoglobin of 9.1, has a relatively benign chemistry panel except for an albumin of 2.8. She had a relatively normal urinalysis. 6. Further laboratory test have revealed an elevated BNP, low TSH, and a HB A1C elevated to 6.6%. 7. 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 It is unclear if she also has an underlying dementia. Recommendations 1. Continue present management. 2. Would continue aggressive antibiotic therapy and hydration. 3. Correct HB to >10 G. 4. Increase activity as tolerated. 5. Observe closely. Pia Dunlap M.D., MNava. PIA DUNLAP May 01, 2017 11:36
[2017-05-01 12:00] VITALS: BP 145/72
--- NOTE | 2017-05-01 12:31 | Infectious Diseases Prog Note ---
Assessment/Plan Assessment/Plan antibiotics : none A 1. bronchitis 2. leucopenia resolved 3. HTN 4. spinal stenosis P 1. continue off antibiotics Subjective ROS Limited/Unobtainable: Yes Allergies: Coded Allergies: No Known Allergies (Unverified , 04/25/17) Objective Vital Signs Last 24 Hour Vital Signs Date Time Temp Pulse Resp B/P (MAP) Pulse Ox O2 Delivery O2 Flow Rate FiO2 05/01/17 09:47 141/71 05/01/17 08:00 98.2 76 19 141/78 98 05/01/17 07:59 95 Nasal Cannula 2.0 28 05/01/17 07:59 Nasal Cannula 2.0 28 05/01/17 07:58 89 20 95 Nasal Cannula 2.0 27 05/01/17 07:55 74 18 91 Room Air 05/01/17 05:06 98.2 76 20 147/86 Nasal Cannula 2.0 94 04/30/17 20:17 97.7 95 18 158/90 93 04/30/17 20:12 94 18 94 Nasal Cannula 2.0 28 04/30/17 19:59 91 18 94 Nasal Cannula 2.0 28 04/30/17 19:57 94 Nasal Cannula 2.0 28 04/30/17 16:00 97.7 91 18 133/69 94 Room Air 04/30/17 13:12 84 20 96 Nasal Cannula 2.0 28 04/30/17 13:11 28 04/30/17 13:00 80 20 95 Nasal Cannula 2.0 28 Height (Feet): 4 Height (Inches): 11.00 Weight (Pounds): 139 Respiratory/Chest: rhonchi - bilaterally Cardiovascular: normal rate, regular rhythm, no gallop/murmur Abdomen: soft, non tender Extremities: other - + edema bilaterally Laboratory Tests Test 05/01/17 07:00 White Blood Count 5.9 K/UL (4.8-10.8) Red Blood Count 3.43 M/UL (4.20-5.40) L Hemoglobin 8.9 G/DL (12.0-16.0) L Hematocrit 28.5 % (37.0-47.0) L Mean Corpuscular Volume 83 FL (80-99) Mean Corpuscular Hemoglobin 25.8 PG (27.0-31.0) L Mean Corpuscular Hemoglobin Concent 31.1 G/DL (32.0-36.0) L Red Cell Distribution Width 13.9 % (11.6-14.8) Platelet Count 173 K/UL (150-450) Mean Platelet Volume 7.1 FL (6.5-10.1) Neutrophils (%) (Auto) 42.4 % (45.0-75.0) L Lymphocytes (%) (Auto) 44.9 % (20.0-45.0) Monocytes (%) (Auto) 12.4 % (1.0-10.0) H Eosinophils (%) (Auto) 0.0 % (0.0-3.0) Basophils (%) (Auto) 0.3 % (0.0-2.0) Sodium Level 139 MMOL/L (136-145) Potassium Level 3.6 MMOL/L (3.5-5.1) Chloride Level 103 MMOL/L (98-107) Carbon Dioxide Level 35 MMOL/L (21-32) H Anion Gap 1 mmol/L (5-15) L Blood Urea Nitrogen 14 mg/dL (7-18) Creatinine 0.6 MG/DL (0.55-1.30) Estimat Glomerular Filtration Rate mL/min (>60) Glucose Level 90 MG/DL (74-106) Calcium Level 8.2 MG/DL (8.5-10.1) L CARMEN RHODES May 01, 2017 12:31
--- NOTE | 2017-05-01 13:47 | Diagnostic Imaging Report ---
Indication: Abdominal pain, nausea, versus Technique: Menendez-scale and duplex images of the upper abdomen were obtained Comparison: None Findings: Gallbladder is unremarkable, without stones, wall thickening, nor pericholecystic fluid. Sonographic Bonilla's sign is negative. Common bile duct measures 2 mm in diameter. No intrahepatic biliary ductal dilatation. Liver demonstrates normal echogenicity, no focal abnormality. No surface nodularity Portal vein and hepatic veins are patent. Pancreas is unremarkable. Spleen is unremarkable. Left kidney measures 10 cm in length. Right kidney measures 9.4 cm length. Both kidneys demonstrate normal echogenicity. There is no hydronephrosis. No focal abnormality . Non-aneurysmal abdominal aorta . Impression: Negative
--- NOTE | 2017-05-01 15:34 | Pulmonology Progress Note ---
Assessment/Plan Problems: (1) Fever (2) Purulent bronchitis (3) Anemia (4) Dementia (5) Depression Assessment/Plan improving respiratory treatment Neuro evaluation reviewed hemodynamically stable wbc better dc home Subjective ROS Limited/Unobtainable: No Interval Events: doing great, Pulse ox on room air 88% Constitutional: Reports: no symptoms Allergies: Coded Allergies: No Known Allergies (Unverified , 04/25/17) Objective Last 24 Hour Vital Signs Date Time Temp Pulse Resp B/P (MAP) Pulse Ox O2 Delivery O2 Flow Rate FiO2 05/01/17 12:47 Nasal Cannula 2.0 28 05/01/17 12:47 Nasal Cannula 2.0 28 05/01/17 12:00 98.2 79 19 145/72 97 05/01/17 09:47 141/71 05/01/17 08:00 98.2 76 19 141/78 98 05/01/17 07:59 95 Nasal Cannula 2.0 28 05/01/17 07:59 Nasal Cannula 2.0 28 05/01/17 07:58 89 20 95 Nasal Cannula 2.0 28 05/01/17 07:55 74 18 91 Room Air 21 05/01/17 05:06 98.2 76 20 147/86 Nasal Cannula 2.0 94 04/30/17 20:17 97.7 95 18 158/90 93 04/30/17 20:12 94 18 94 Nasal Cannula 2.0 28 04/30/17 19:59 91 18 94 Nasal Cannula 2.0 28 04/30/17 19:57 94 Nasal Cannula 2.0 28 04/30/17 16:00 97.7 91 18 133/69 94 Room Air Intake and Output 05/01/17 05/02/17 19:00 07:00 Intake Total 240 ml Balance 240 ml Intake Oral 240 ml # Voids 1 General Appearance: WD/WN HEENT: normocephalic, atraumatic Respiratory/Chest: chest wall non-tender, normal breath sounds Breasts: no masses Cardiovascular: normal peripheral pulses, normal rate Genitourinary: normal external genitalia Extremities: no cyanosis Skin: no rash Laboratory Tests 05/01/17 07:00: White Blood Count 5.9, Red Blood Count 3.43L, Hemoglobin 8.9L, Hematocrit 28.5L , Mean Corpuscular Volume 83, Mean Corpuscular Hemoglobin 25.8L, Mean Corpuscular Hemoglobin Concent 31.1L, Red Cell Distribution Width 13.9, Platelet Count 173, Mean Platelet Volume 7.1, Neutrophils (%) (Auto) 42.4L, Lymphocytes (%) (Auto) 44.9, Monocytes (%) (Auto) 12.4H, Eosinophils (%) (Auto) 0.0, Basophils (%) (Auto) 0.3, Sodium Level 139, Potassium Level 3.6, Chloride Level 103, Carbon Dioxide Level 35H, Anion Gap 1L, Blood Urea Nitrogen 14, Creatinine 0.6, Estimat Glomerular Filtration Rate , Glucose Level 90, Calcium Level 8.2L Current Medications Medications (Trade) Dose Ordered Sig/Jovani Route PRN Reason Start Time Stop Time Status Last Admin Dose Admin Acetaminophen (Tylenol) 325 mg Q6H PRN ORAL Mild Pain/Temp > 100.5 04/26/17 21:45 05/26/17 21:44 05/01/17 09:47 Albuterol/ Ipratropium (Albuterol/ Ipratropium) 3 ml Q4H PRN HHN SHORTNESS OF BREATH 04/28/17 15:00 05/03/17 14:59 04/30/17 09:39 Albuterol/ Ipratropium (Albuterol/ Ipratropium) 3 ml TIDRT HHN 04/28/17 19:00 05/02/17 21:59 05/01/17 07:33 Aspirin (Ecotrin) 81 mg DAILY ORAL 04/26/17 09:00 05/26/17 08:59 05/01/17 11:30 Escitalopram Oxalate (Lexapro) 10 mg DAILY ORAL 04/26/17 09:00 05/26/17 08:59 04/30/17 09:30 Gabapentin (Neurontin) 100 mg BEDTIME ORAL 04/30/17 21:00 05/26/17 08:59 Heparin Sodium (Porcine) (Heparin 5000 units/ml) 5,000 units Q12HR SUBQ 04/27/17 11:00 05/27/17 10:59 05/01/17 09:48 Losartan Potassium (Cozaar) 25 mg DAILY ORAL 04/26/17 09:00 05/26/17 08:59 05/01/17 09:47 Phosphorus (Phospha 250 Neutral) 250 mg THREE TIMES A DAY ORAL 04/28/17 18:00 05/28/17 17:59 05/01/17 11:30 Prednisone (predniSONE) 10 mg DAILY ORAL 05/03/17 09:00 05/03/17 09:01 Prednisone (predniSONE) 20 mg DAILY ORAL 05/02/17 09:00 05/02/17 09:01 Tramadol HCl (Ultram) 50 mg Q6H PRN ORAL Severe Pain (Pain Scale 7-10) 04/26/17 02:00 05/03/17 01:59 05/01/17 01:42 FELICITA STEWART May 01, 2017 15:34
[2017-05-01 16:00] VITALS: BP 139/72
[2017-05-01 20:02] VITALS: BP 130/87
--- NOTE | 2017-05-01 20:07 | Cardiology Progress Note ---
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 on steroid wbc now normal off levaquin and zosyn due to low wbc now better hhnprn oob off abx dc home in am d/w famil;y in detain ltehy feel pt still wheezes when seh walks around Subjective Cardiovascular: Denies: chest pain, lightheadedness Respiratory: Denies: shortness of breath Gastrointestinal/Abdominal: Denies: abdomen distended Genitourinary: Denies: burning Objective Last 24 Hour Vital Signs Date Time Temp Pulse Resp B/P (MAP) Pulse Ox O2 Delivery O2 Flow Rate FiO2 05/01/17 16:00 98.2 82 19 139/72 96 05/01/17 16:00 Nasal Cannula 2.0 05/01/17 12:47 Nasal Cannula 2.0 28 05/01/17 12:47 Nasal Cannula 2.0 28 05/01/17 12:00 98.2 79 19 145/72 97 05/01/17 12:00 Nasal Cannula 2.0 05/01/17 09:47 141/71 05/01/17 08:00 98.2 76 19 141/78 98 05/01/17 07:59 95 Nasal Cannula 2.0 28 05/01/17 07:59 Nasal Cannula 2.0 28 05/01/17 07:58 89 20 95 Nasal Cannula 2.0 28 05/01/17 07:55 74 18 91 Room Air 21 05/01/17 05:06 98.2 76 20 147/86 Nasal Cannula 2.0 94 04/30/17 20:17 97.7 95 18 158/90 93 04/30/17 20:12 94 18 94 Nasal Cannula 2.0 28 General Appearance: alert Neck: supple Cardiovascular: normal rate, regular rhythm Respiratory/Chest: lungs clear Abdomen: normal bowel sounds, non tender, soft Extremities: no swelling Intake and Output 05/01/17 05/02/17 19:00 07:00 Intake Total 680 ml Balance 680 ml Intake Oral 680 ml # Voids 2 Laboratory Tests Test 05/01/17 07:00 White Blood Count 5.9 K/UL (4.8-10.8) Red Blood Count 3.43 M/UL (4.20-5.40) L Hemoglobin 8.9 G/DL (12.0-16.0) L Hematocrit 28.5 % (37.0-47.0) L Mean Corpuscular Volume 83 FL (80-99) Mean Corpuscular Hemoglobin 25.8 PG (27.0-31.0) L Mean Corpuscular Hemoglobin Concent 31.1 G/DL (32.0-36.0) L Red Cell Distribution Width 13.9 % (11.6-14.8) Platelet Count 173 K/UL (150-450) Mean Platelet Volume 7.1 FL (6.5-10.1) Neutrophils (%) (Auto) 42.4 % (45.0-75.0) L Lymphocytes (%) (Auto) 44.9 % (20.0-45.0) Monocytes (%) (Auto) 12.4 % (1.0-10.0) H Eosinophils (%) (Auto) 0.0 % (0.0-3.0) Basophils (%) (Auto) 0.3 % (0.0-2.0) Sodium Level 139 MMOL/L (136-145) Potassium Level 3.6 MMOL/L (3.5-5.1) Chloride Level 103 MMOL/L (98-107) Carbon Dioxide Level 35 MMOL/L (21-32) H Anion Gap 1 mmol/L (5-15) L Blood Urea Nitrogen 14 mg/dL (7-18) Creatinine 0.6 MG/DL (0.55-1.30) Estimat Glomerular Filtration Rate mL/min (>60) Glucose Level 90 MG/DL (74-106) Calcium Level 8.2 MG/DL (8.5-10.1) L CELIO OQUENDO May 01, 2017 20:07
[2017-05-01] MEDS ORDERED: PROAIR HFA8.5 GM INH (20:09)
--- NOTE | 2017-05-01 21:19 | General Progress Note ---
Assessment/Plan Assessment/Plan Assessment/Plan #. Leukopenia, likely related to abx use of Zosyn vs levaquin, both have incidence of leukopenia in prior patients --> both now dc'd --> wbc count normalized --> flow cyt reviewed, with no abnormalities #. Anemia 2/2 chronic disease, continue to closely monitor # Coagulopathy, likely reactive --> on repeat has improved #. Dementia # COPD exacerbation s/p steroid administration Subjective Hematologic/Lymphatic: Reports: anemia Allergies: Coded Allergies: No Known Allergies (Unverified , 04/25/17) All Systems: reviewed and negative except above Subjective no n/v/f/c Objective Last 24 Hour Vital Signs Date Time Temp Pulse Resp B/P (MAP) Pulse Ox O2 Delivery O2 Flow Rate FiO2 05/01/17 20:02 97.7 87 20 130/87 95 Nasal Cannula 2.0 05/01/17 19:10 92 18 95 Nasal Cannula 2.0 28 05/01/17 19:00 Nasal Cannula 2.0 28 05/01/17 19:00 94 Nasal Cannula 2.0 28 05/01/17 19:00 91 18 93 Nasal Cannula 2.0 28 05/01/17 16:00 98.2 82 19 139/72 96 05/01/17 16:00 Nasal Cannula 2.0 05/01/17 12:47 Nasal Cannula 2.0 28 05/01/17 12:47 Nasal Cannula 2.0 28 05/01/17 12:00 98.2 79 19 145/72 97 05/01/17 12:00 Nasal Cannula 2.0 05/01/17 09:47 141/71 05/01/17 08:00 98.2 76 19 141/78 98 05/01/17 07:59 95 Nasal Cannula 2.0 28 05/01/17 07:59 Nasal Cannula 2.0 28 05/01/17 07:58 89 20 95 Nasal Cannula 2.0 05/01/17 07:55 74 18 91 Room Air 21 05/01/17 05:06 98.2 76 20 147/86 Nasal Cannula 2.0 94 Intake and Output 05/01/17 05/02/17 19:00 07:00 Intake Total 680 ml Balance 680 ml Intake Oral 680 ml # Voids 2 Laboratory Tests 05/01/17 07:00: White Blood Count 5.9, Red Blood Count 3.43L, Hemoglobin 8.9L, Hematocrit 28.5L , Mean Corpuscular Volume 83, Mean Corpuscular Hemoglobin 25.8L, Mean Corpuscular Hemoglobin Concent 31.1L, Red Cell Distribution Width 13.9, Platelet Count 173, Mean Platelet Volume 7.1, Neutrophils (%) (Auto) 42.4L, Lymphocytes (%) (Auto) 44.9, Monocytes (%) (Auto) 12.4H, Eosinophils (%) (Auto) 0.0, Basophils (%) (Auto) 0.3, Sodium Level 139, Potassium Level 3.6, Chloride Level 103, Carbon Dioxide Level 35H, Anion Gap 1L, Blood Urea Nitrogen 14, Creatinine 0.6, Estimat Glomerular Filtration Rate , Glucose Level 90, Calcium Level 8.2L Height (Feet): 4 Height (Inches): 11.00 Weight (Pounds): 139 General Appearance: no apparent distress EENT: normal ENT inspection Neck: normal alignment Cardiovascular: normal peripheral pulses Extremities: non-tender Edema: trace edema Neurologic: acquisition professional II-XII grossly normal Skin: normal pigmentation Miguel Angel Brady May 01, 2017 21:19
[2017-05-01 23:56] VITALS: BP 154/71
[2017-05-02] MEDS: traMADol 50mg tab ORAL PRN (04:04)
[2017-05-02 04:27] VITALS: BP 158/68
[2017-05-02] MEDS: Albuterol/Ipratropium 3ml neb HHN SCH ×2 (07:48→13:21)
[2017-05-02 08:32] VITALS: BP 137/80
[2017-05-02] MEDS: Aspirin EC 81mg tab ORAL SCH (08:35)
[2017-05-02] MEDS: Losartan 25mg tab ORAL SCH (08:36)
[2017-05-02] MEDS: Phospha 250 Neutral tab ORAL SCH ×2 (08:36→13:35)
[2017-05-02] MEDS: Heparin 5000 units/ml inj SUBQ SCH (08:37)
--- NOTE | 2017-05-02 09:57 | General Progress Note ---
Assessment/Plan Assessment/Plan Assessment/Plan #. Leukopenia, likely related to abx use of Zosyn vs levaquin, both have incidence of leukopenia in prior patients --> both now dc'd --> wbc count normalized --> flow cyt reviewed, with no abnormalities --> closely monitor but at this time does not need a bone marrow biopsy #. Anemia 2/2 chronic disease, continue to closely monitor # Coagulopathy, likely reactive --> on repeat has improved #. Dementia # COPD exacerbation s/p steroid administration Subjective Constitutional: Reports: no symptoms HEENT: Reports: no symptoms Cardiovascular: Reports: no symptoms Respiratory: Reports: no symptoms Gastrointestinal/Abdominal: Reports: poor appetite Genitourinary: Reports: no symptoms Neurologic/Psychiatric: Reports: no symptoms Endocrine: Reports: no symptoms Hematologic/Lymphatic: Reports: anemia Allergies: Coded Allergies: No Known Allergies (Unverified , 04/25/17) Subjective no n/v/f/c, no recent changes, cbc stable Objective Last 24 Hour Vital Signs Date Time Temp Pulse Resp B/P (MAP) Pulse Ox O2 Delivery O2 Flow Rate FiO2 05/02/17 08:36 137/80 05/02/17 08:32 97.8 93 20 137/80 95 05/02/17 08:02 95 20 97 Nasal Cannula 2.0 05/02/17 07:48 88 20 Nasal Cannula 2.0 05/02/17 07:48 Nasal Cannula 2.0 05/02/17 07:48 95 Nasal Cannula 2.0 05/02/17 04:27 98.2 77 21 158/68 Nasal Cannula 2.0 05/02/17 00:02 Nasal Cannula 2.0 05/01/17 23:56 97.6 76 20 154/71 95 Nasal Cannula 05/01/17 20:02 97.7 87 20 130/87 95 Nasal Cannula 2.0 05/01/17 19:10 92 18 95 Nasal Cannula 2.0 05/01/17 19:00 Nasal Cannula 2.0 05/01/17 19:00 94 Nasal Cannula 2.0 05/01/17 19:00 91 18 93 Nasal Cannula 2.0 05/01/17 16:00 98.2 82 19 139/72 96 05/01/17 16:00 Nasal Cannula 2.0 05/01/17 12:47 Nasal Cannula 2.0 28 05/01/17 12:47 Nasal Cannula 2.0 28 05/01/17 12:00 98.2 79 19 145/72 97 05/01/17 12:00 Nasal Cannula 2.0 Intake and Output 05/02/17 05/03/17 19:00 07:00 Intake Total 240 ml Balance 240 ml Intake Oral 240 ml Height (Feet): 4 Height (Inches): 11.00 Weight (Pounds): 139 General Appearance: alert EENT: TMs normal Neck: normal alignment Cardiovascular: regular rhythm Respiratory/Chest: lungs clear Abdomen: normal bowel sounds Extremities: non-tender Edema: no edema noted Leg (L), no edema noted Leg (R) Edema: trace edema Neurologic: alert Skin: warm/dry Miguel Angel Brady May 02, 2017 09:57
--- NOTE | 2017-05-02 10:48 | Infectious Diseases Prog Note ---
Assessment/Plan Assessment/Plan antibiotics : none A 1. bronchitis 2. leucopenia resolved 3. HTN 4. spinal stenosis P 1. continue off antibiotics Subjective ROS Limited/Unobtainable: Yes Allergies: Coded Allergies: No Known Allergies (Unverified , 04/25/17) Objective Vital Signs Last 24 Hour Vital Signs Date Time Temp Pulse Resp B/P (MAP) Pulse Ox O2 Delivery O2 Flow Rate FiO2 05/02/17 08:36 137/80 05/02/17 08:32 97.8 93 20 137/80 95 05/02/17 08:02 95 20 97 Nasal Cannula 2.0 28 05/02/17 07:48 88 20 Nasal Cannula 2.0 28 05/02/17 07:48 Nasal Cannula 2.0 05/02/17 07:48 95 Nasal Cannula 2.0 05/02/17 04:27 98.2 77 21 158/68 Nasal Cannula 2.0 05/02/17 00:02 Nasal Cannula 2.0 05/01/17 23:56 97.6 76 20 154/71 95 Nasal Cannula 05/01/17 20:02 97.7 87 20 130/87 95 Nasal Cannula 2.0 05/01/17 19:10 92 18 95 Nasal Cannula 2.0 28 05/01/17 19:00 Nasal Cannula 2.0 28 05/01/17 19:00 94 Nasal Cannula 2.0 28 05/01/17 19:00 91 18 93 Nasal Cannula 2.0 28 05/01/17 16:00 98.2 82 19 139/72 96 05/01/17 16:00 Nasal Cannula 2.0 05/01/17 12:47 Nasal Cannula 2.0 28 05/01/17 12:47 Nasal Cannula 2.0 28 05/01/17 12:00 98.2 79 19 145/72 97 05/01/17 12:00 Nasal Cannula 2.0 Height (Feet): 4 Height (Inches): 11.00 Weight (Pounds): 139 Respiratory/Chest: lungs clear Cardiovascular: normal rate, regular rhythm, no gallop/murmur Abdomen: soft, non tender Extremities: other - + edema bilaterally CARMEN RHODES May 02, 2017 10:48
[2017-05-02 11:37] VITALS: BP 132/78
[2017-05-02] MEDS ORDERED: Pneumococcal Vaccine 25mcg/0.5ml IM ONE (12:30)
[2017-05-02] MEDS ORDERED: Flu Vaccine Quadrivalent 0.5ml IM ONE (12:30)
[2017-05-03 10:18] LABS: OTHERS PATHOLOGIST COMMENT
--- NOTE | 2017-05-04 16:35 | Discharge Summary ---
Discharge Summary Hospital Course Date of Admission Apr 25, 2017 at 22:05 Date of Discharge May 02, 2017 at 14:50 Admitting Diagnosis Pneumonia HPI Doreen Ponce is a 82 year old female who was admitted on Apr 25, 2017 at 22:05 for Pneumonia Hospital Course [id number] Discharge Discharge Disposition Patient was discharged to Home (01) Discharge Diagnoses: Kavitha Lafleur NP May 04, 2017 16:35
--- NOTE | 2017-05-04 20:30 | Discharge Summary 2 SIG ---
DATE OF ADMISSION: 04/25/2017 DATE OF DISCHARGE: 05/02/2017 CONSULTANTS: 1. Kemal Kamara M.D. 2. Jose Workman M.D. 3. Patsy Garcia M.D. 4. Miguel Angel Brady M.D. BRIEF HOSPITAL COURSE: The patient is an 82-year-old female, who apparently had been having cough with shortness of breath and wheezing and unable to get up and move around. The patient was noted to be confused and not following commands. She was having some fever with bloody sputum. She was taken to [facility] emergency room and at ED, workup showed no leukocytosis. Hemoglobin was 10 and hematocrit 33. Chest x-ray showed opacity on the left lower lobe. EKG was in normal sinus rhythm with left bundle-branch block. No acute changes. Head CT was negative for acute intracranial bleed or mass effect. There is lateral and third ventriculomegaly and deep white matter low attenuation, most likely chronic ischemic changes. She was admitted to telemetry for bronchospasms with acute bronchitis. She was given low-dose Lasix. BNP is not significantly elevated nor she is exhibiting signs of heart failure of significant degree. Atenolol was discontinued. Her urinalysis showed leukocytosis. she was started on IV antibiotics. She underwent neurological evaluation. She had problems with orientation, recent and remote memory, visuospatial function, and higher cognitive function with generalized weakness. 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 She was initially started on Zosyn and Levaquin. Blood culture did not isolate any growth. Urine culture showed mixed gram-positive organisms. Antibiotics were discontinued. The patient had leukopenia. Flow cytometry done was without abnormalities. Leukopenia improved post discontinuing antibiotics. Anemia workup done showed anemia secondary to chronic disease. She was continued on respiratory treatments and was tapered off steroids. She was eventually discharged home with home health. FINAL DIAGNOSES: 1. Acute bronchitis with bronchospasms. 2. Acute toxic metabolic encephalopathy. 3. Leukopenia likely related to medications, improved. 4. Left bundle-branch block. 5. Hypertensive. 6. Anemia of chronic disease. 7. Spinal stenosis. DISPOSITION: The patient was discharged home with home health. DISCHARGE MEDICATIONS: Refer to medication list. Discontinue atenolol. Continue with albuterol HFA p.r.n., aspirin, Lexapro, losartan, and tramadol p.r.n. FOLLOWUP: Follow up as outpatient. Raul Medel M.D. I have been assigned to dictate discharge summary on this account and I was not involved in the patient's management. Kavitha Lafleur N.P. DR: ANAI JOB#: [id number] CC: [place]
== END 2017-05-02 14:50 | disposition home health service (06) | DRG 140 ==
LOC: EDBD 20:21 → EMR 21:46 → 2E 22:05 → EDBEDREQ 22:42 → 3E 04-27 18:39
DX: J44.1 Chronic obstructive pulmonary disease with (acute) exacerbation (principal); G92 Toxic encephalopathy; I27.20 Pulmonary hypertension, unspecified; F03.90 Unspecified dementia, unspecified severity, without behavioral disturbance, psychotic disturbance, mood disturbance, and anxiety; D64.9 Anemia, unspecified; J44.0 Chronic obstructive pulmonary disease with (acute) lower respiratory infection; J20.9 Acute bronchitis, unspecified; I44.7 Left bundle-branch block, unspecified; I10 Essential (primary) hypertension; D72.819 Decreased white blood cell count, unspecified; N39.0 Urinary tract infection, site not specified; D50.9 Iron deficiency anemia, unspecified; F32.9 Major depressive disorder, single episode, unspecified; M48.00 Spinal stenosis, site unspecified
CPT/HCPCS: 36415; 70450; 71010; 76700; 80048; 80053; 81003; 82270; 82306; 82378; 82550; 82553; 82607; 82728; 82746; 83036; 83090; 83540; 83550; 83615; 83735; 83880; 84100; 84443; 84484; 84550; 85007; 85025; 85044; 85060; 85384; 85610; 85651; 85730; 86592; 86703; 86705; 86709; 86803; 87040; 87086; 87340; 90630; 90732; 93005; 93306; 94640; 94664; 94760; 99285; C9399; J7620